=== PATIENT | female | born 1965 | race Caucasian/White ===

== ENCOUNTER 2020-06-15 08:54 | Inpatient (IN) ==
[2020-06-15] MEDS ORDERED: SODIUM CHLORIDE 0.9% 1,000 ML IV STA (10:29)
[2020-06-15] MEDS ORDERED: ONDANSETRON 4 MG/2 ML VIAL IV STA (10:29)
[2020-06-15 10:43] LABS: Basophils % 0.2 % (0.0-0.8); Eosinophils % 0.2 % (0.00-10.9); Hematocrit 34.2 VOL% (35.7-47.0); Hemoglobin 11.5 GM/DL (12.0-16.0); Immature Granulocytes % 0.7 %; Immature Granulocytes Absolute 0.13 #; Lymphocytes # 2.4 10*3/uL (1.4-4.0); Lymphocytes % 13.2 % (21.3-54.2); Mean Corpuscular HGB Conc 33.6 GM/DL (32-36); Mean Corpuscular Volume 87.9 FL (87-102); Mean Platelet Volume 8.2 FL (9.6-12.0); Monocytes % 4.9 % (1.7-12.7); Neutrophils % 80.8 % (38.7-73.9); Platelet Count 277 T/CUMM (130-400); Red Blood Count 3.89 MC/CUMM (3.8-5.5); Red Cell Distribution Width 15.9 % (9.3-17.3); White Blood Count 18.2 T/CUMM (4-12)
[2020-06-15 11:01] LABS: PT Patient Result 11.1 SECS (9.8-11.9)
[2020-06-15 11:11] LABS: Albumin 3.1 G/DL (3.4-5.0); Bilirubin,Total 0.7 MG/DL (0.2-1.0); Ferritin 181.5 ng/ml (8-252); Osmolality,Calculated 262.8 MOS/KG (273-304); Potassium 3.3 MMOL/L (3.5-5.1); Total Protein 7.2 G/DL (6.4-8.3)
[2020-06-15] MEDS ORDERED: PIPERACILLIN/TAZOBACTAM 3,375 MG in SODIUM CHLORIDE 0.9% 100 ML IV STA (11:21)
[2020-06-15] MEDS ORDERED: ENOXAPARIN 100 MG/ML SYRINGE SUBCUT STA (11:58)
[2020-06-15] MEDS ORDERED: ACETAMINOPHEN 500 MG TABLET ONE (12:29)
[2020-06-15] MEDS ORDERED: ACETAMINOPHEN 500 MG TABLET PO STA (12:37)
[2020-06-15] MEDS ORDERED: GLUCAGON 1 MG VIAL IM PRN (13:04)
[2020-06-15] MEDS ORDERED: DEXTROSE 50% 25 GM/50 ML VIAL IV PRN (13:04)
[2020-06-15] MEDS ORDERED: AZITHROMYCIN INJ 500 MG in SODIUM CHLORIDE 0.9% 250 ML IV SCH (13:30)
[2020-06-15] MEDS ORDERED: SODIUM CHLORIDE 0.9% 100 ML IV ONE (13:48)
[2020-06-15] MEDS: SODIUM CHLORIDE 0.9% 1,000 ML IV SCH (13:55)
[2020-06-15] MEDS: cefTRIAXone 1,000 MG in SYRINGE 1 EACH IV SCH (13:55)
[2020-06-15] MEDS ORDERED: hydrALAZINE 20 MG/1 ML VIAL IV PRN (15:29)
[2020-06-15] MEDS: ONDANSETRON 4 MG/2 ML VIAL IV PRN (16:19)
[2020-06-15] MEDS ORDERED: MORPHINE 4 MG/1 ML VIAL ONE (16:42)
[2020-06-15] MEDS ORDERED: MORPHINE 4 MG/1 ML VIAL IV STA (16:45)
[2020-06-15] MEDS: FLUTICASONE 50 MCG NASAL SPRAY 16 GM BOTTLE BOTH NARES SCH ×2 (17:15→21:51)
[2020-06-15] MEDS: POTASSIUM CHLORIDE RIDER 10 MEQ in PREMIX 1 EACH IV PRN ×4 (17:49→22:57)
[2020-06-15] MEDS: oxyCODONE/ACETAMINOPHEN 5-325 MG TABLET PO PRN (18:03)
[2020-06-15] MEDS: APIXABAN 5 MG TABLET PO SCH (20:36)
[2020-06-15] MEDS: GABAPENTIN 300 MG CAPSULE PO SCH (20:36)
[2020-06-15] MEDS: cycloSPORINE OPH EMUL 1 VIAL BOTH EYES SCH (20:37)
[2020-06-15] MEDS: oxyCODONE ER 20 MG TABLET PO SCH (20:37)
[2020-06-15] MEDS ORDERED: APIXABAN 5 MG TABLET PO SCH (21:00)
[2020-06-15] MEDS ORDERED: BUTALBITAL/ACETAMIN/CAFFEINE 50-325-40 MG TABLET PO ONE (21:25)
[2020-06-15] MEDS ORDERED: CALCIUM CARBONATE CHEW 500 MG TABLET PO PRN (22:49)
[2020-06-16] MEDS: oxyCODONE/ACETAMINOPHEN 5-325 MG TABLET PO PRN ×2 (03:37→11:40)
[2020-06-16 07:25] LABS: Basophils # 0.1 10*3/uL (0.0-0.2); Basophils % 0.5 % (0.0-0.8); Eosinophils # 0.1 10*3/uL (0.0-0.87); Hematocrit 29.9 VOL% (35.7-47.0); Hemoglobin 9.8 GM/DL (12.0-16.0); Immature Granulocytes % 0.7 %; Immature Granulocytes Absolute 0.07 #; Lymphocytes % 18.7 % (21.3-54.2); Mean Corpuscular HGB Conc 32.8 GM/DL (32-36); Mean Corpuscular Volume 90.3 FL (87-102); Mean Platelet Volume 8.3 FL (9.6-12.0); Monocytes % 7.3 % (1.7-12.7); Neutrophils % 71.8 % (38.7-73.9); Platelet Count 243 T/CUMM (130-400); Red Blood Count 3.31 MC/CUMM (3.8-5.5); Red Cell Distribution Width 15.4 % (9.3-17.3); White Blood Count 10.5 T/CUMM (4-12)
[2020-06-16 07:45] LABS: Calcium 8.6 MG/DL (8.5-10.1); Osmolality,Calculated 271.7 MOS/KG (273-304); Potassium 3.5 MMOL/L (3.5-5.1)
[2020-06-16] MEDS: FLUTICASONE 50 MCG NASAL SPRAY 16 GM BOTTLE BOTH NARES SCH ×2 (08:47→20:53)
[2020-06-16] MEDS: THYROID 60 MG TABLET PO SCH (08:48)
[2020-06-16] MEDS: oxyCODONE ER 20 MG TABLET PO SCH ×2 (08:48→20:57)
[2020-06-16] MEDS: PANTOPRAZOLE 40 MG TABLET PO SCH (08:50)
[2020-06-16] MEDS: POTASSIUM CHLORIDE 20 MEQ TABLET PO PRN ×2 (08:50→11:49)
[2020-06-16] MEDS: LISINOPRIL/HCTZ 20-25 MG TABLET PO SCH (08:50)
[2020-06-16] MEDS: APIXABAN 5 MG TABLET PO SCH ×2 (08:50→20:53)
[2020-06-16] MEDS: GABAPENTIN 300 MG CAPSULE PO SCH ×3 (08:50→20:52)
[2020-06-16] MEDS: cycloSPORINE OPH EMUL 1 VIAL BOTH EYES SCH ×2 (08:51→20:53)
[2020-06-16] MEDS: ONDANSETRON 4 MG/2 ML VIAL IV PRN (08:51)
[2020-06-16] MEDS ORDERED: CYANOCOBALAMIN 1000 MCG/1 ML VIAL IM SCH (09:00)
[2020-06-16] MEDS: BACLOFEN 10 MG TABLET PO PRN ×3 (09:24→20:52)
[2020-06-16] MEDS: AZITHROMYCIN 250 MG TABLET PO SCH (09:24)
[2020-06-16] MEDS: cefTRIAXone 1,000 MG in SYRINGE 1 EACH IV SCH (09:24)
[2020-06-16 10:08] LABS: Bilirubin,Urine Negative (Negative); Blood, Urine Large mg/dL (Negative); Glucose,Urine (UA) Negative (Negative); Ketones,Urine 20 mg/dL (Negative); Mucus,Urine Occasional /LPF (Occasional); Nitrite,Urine Negative (Negative); Protein,Urine Negative; RBC,Urine 10 /HPF (0-4); Squamous Epithelial Cell,Urine Occasional /HPF (0-10); Urine Appearance CLEAR (Clear); Urine Color Yellow (Yellow); Urine Specific Gravity 1.014 (1.001-1.035); Urine Urobilinogen < 2.0 EU/DL (0.2-1.0); WBC,Urine 1 /HPF (0-6)
[2020-06-16] MEDS ORDERED: ACETAMINOPHEN 325 MG TABLET PO PRN (11:15)
[2020-06-16] MEDS: predniSONE 5 MG TABLET PO SCH (11:40)
[2020-06-16] MEDS: PROMETHAZINE 25 MG TABLET PO PRN ×2 (11:49→23:25)
[2020-06-16] MEDS ORDERED: POTASSIUM CHLORIDE RIDER 10 MEQ in PREMIX 1 EACH IV PRN (12:22)
[2020-06-16] MEDS ORDERED: BUTALBITAL/ACETAMIN/CAFFEINE 50-325-40 MG TABLET PO PRN (12:24)
[2020-06-16] MEDS ORDERED: predniSONE 5 MG TABLET PO SCH (12:30)
[2020-06-16] MEDS ORDERED: predniSONE 10 MG TABLET PO SCH (12:30)
[2020-06-17] MEDS: oxyCODONE/ACETAMINOPHEN 5-325 MG TABLET PO PRN (04:21)
[2020-06-17] MEDS: SODIUM CHLORIDE 0.9% 1,000 ML IV SCH ×4 (04:25→08:26)
[2020-06-17 06:21] LABS: Basophils % 0.2 % (0.0-0.8); Eosinophils # 0.1 10*3/uL (0.0-0.87); Eosinophils % 0.5 % (0.00-10.9); Hematocrit 32.3 VOL% (35.7-47.0); Hemoglobin 10.5 GM/DL (12.0-16.0); Immature Granulocytes % 0.9 %; Immature Granulocytes Absolute 0.09 #; Lymphocytes # 1.1 10*3/uL (1.4-4.0); Lymphocytes % 10.3 % (21.3-54.2); Mean Corpuscular HGB Conc 32.5 GM/DL (32-36); Mean Corpuscular Volume 89.5 FL (87-102); Mean Platelet Volume 8.6 FL (9.6-12.0); Monocytes % 6.7 % (1.7-12.7); Neutrophils % 81.4 % (38.7-73.9); Platelet Count 288 T/CUMM (130-400); Red Blood Count 3.61 MC/CUMM (3.8-5.5); Red Cell Distribution Width 14.9 % (9.3-17.3); White Blood Count 10.4 T/CUMM (4-12)
[2020-06-17 06:40] LABS: Calcium 8.7 MG/DL (8.5-10.1); Osmolality,Calculated 273.8 MOS/KG (273-304); Potassium 3.2 MMOL/L (3.5-5.1)
[2020-06-17 06:45] LABS: Ferritin 240.1 ng/ml (8-252)
[2020-06-17] MEDS: POTASSIUM CHLORIDE 20 MEQ TABLET PO PRN ×2 (08:24→10:31)
[2020-06-17] MEDS: cefTRIAXone 1,000 MG in SYRINGE 1 EACH IV SCH (08:24)
[2020-06-17] MEDS: predniSONE 5 MG TABLET PO SCH (08:24)
[2020-06-17] MEDS: AZITHROMYCIN 250 MG TABLET PO SCH (08:25)
[2020-06-17] MEDS: THYROID 60 MG TABLET PO SCH (08:25)
[2020-06-17] MEDS: oxyCODONE ER 20 MG TABLET PO SCH (08:25)
[2020-06-17] MEDS: LISINOPRIL/HCTZ 20-25 MG TABLET PO SCH (08:25)
[2020-06-17] MEDS: APIXABAN 5 MG TABLET PO SCH (08:25)
[2020-06-17] MEDS: GABAPENTIN 300 MG CAPSULE PO SCH (08:25)
[2020-06-17] MEDS: PANTOPRAZOLE 40 MG TABLET PO SCH (08:26)
[2020-06-17] MEDS: cycloSPORINE OPH EMUL 1 VIAL BOTH EYES SCH (08:26)
[2020-06-17] MEDS: FLUTICASONE 50 MCG NASAL SPRAY 16 GM BOTTLE BOTH NARES SCH (08:27)
[2020-06-17 11:32] VITALS: BP 101/42
[2020-06-17] MEDS ORDERED: POTASSIUM CHLORIDE 20 MEQ TABLET PO ONE (14:26)
[2020-06-22] MEDS ORDERED: APIXABAN 5 MG TABLET PO SCH (21:00)
== END 2020-06-17 14:56 | disposition home or self-care (01) | DRG 177 ==
LOC: N.ED 08:54 → N.EDINP 13:04 → N.5E 17:13
PROVIDERS: ADMIT Internal Medicine; ATTEND Internal Medicine

== ENCOUNTER 2020-08-15 08:40 | Inpatient (IN) ==
[2020-08-15] MEDS ORDERED: HYDROmorphone 2 MG/1 ML VIAL IV STA ×2 (09:00→09:49)
[2020-08-15] MEDS ORDERED: ONDANSETRON 4 MG/2 ML VIAL IV STA (09:00)
[2020-08-15 09:50] LABS: Basophils # 0.1 10*3/uL (0.0-0.2); Basophils % 0.4 % (0.0-0.8); Eosinophils # 0.1 10*3/uL (0.0-0.87); Eosinophils % 0.3 % (0.00-10.9); Hematocrit 33.2 VOL% (35.7-47.0); Hemoglobin 10.6 GM/DL (12.0-16.0); Immature Granulocytes % 1.3 %; Lymphocytes # 2.6 10*3/uL (1.4-4.0); Lymphocytes % 16.1 % (21.3-54.2); Mean Corpuscular HGB Conc 31.9 GM/DL (32-36); Mean Corpuscular Volume 91.2 FL (87-102); Mean Platelet Volume 8.2 FL (9.6-12.0); Monocytes % 6.5 % (1.7-12.7); Neutrophils % 75.4 % (38.7-73.9); Platelet Count 366 T/CUMM (130-400); Red Blood Count 3.64 MC/CUMM (3.8-5.5); Red Cell Distribution Width 16.2 % (9.3-17.3); White Blood Count 15.9 T/CUMM (4-12)
[2020-08-15 10:01] LABS: INR 0.9
[2020-08-15 10:07] LABS: Bilirubin,Urine Negative (Negative); Blood, Urine Small mg/dL (Negative); Glucose,Urine (UA) Negative (Negative); Ketones,Urine Negative (Negative); Mucus,Urine Occasional /LPF (Occasional); Nitrite,Urine Negative (Negative); Protein,Urine Negative; RBC,Urine 9 /HPF (0-4); Urine Appearance CLEAR (Clear); Urine Color Yellow (Yellow); Urine Specific Gravity 1.016 (1.001-1.035); Urine Urobilinogen < 2.0 EU/DL (0.2-1.0); WBC,Urine <1 /HPF (0-6)
[2020-08-15 10:28] LABS: Osmolality,Calculated 267.5 MOS/KG (273-304); Potassium 4.1 MMOL/L (3.5-5.1)
[2020-08-15] MEDS ORDERED: ONDANSETRON 4 MG/2 ML VIAL IV PRN (13:25)
[2020-08-15] MEDS ORDERED: DEXTROSE 50% 25 GM/50 ML VIAL IV PRN ×2 (14:07→14:59)
[2020-08-15] MEDS ORDERED: GLUCAGON 1 MG VIAL IM PRN ×2 (14:07→14:59)
[2020-08-15] MEDS ORDERED: DOCUSATE SODIUM 100 MG CAPSULE PO PRN (14:59)
[2020-08-15] MEDS ORDERED: ALUMINUM/MAGNES/SIMETH MAX STR 30 ML UDCUP PO PRN (14:59)
[2020-08-15] MEDS: SODIUM CHLORIDE 0.9% 1,000 ML IV SCH (16:00)
[2020-08-15] MEDS ORDERED: HEPARIN DRIP 25,000 UNITS/500 ML PREMIX IV SCH (16:30)
[2020-08-15] MEDS ORDERED: PROMETHAZINE 25 MG TABLET PO PRN (16:38)
[2020-08-15] MEDS ORDERED: tiZANidine 4 MG TABLET PO PRN (16:38)
[2020-08-15] MEDS ORDERED: HYDROCORTISONE 100 MG VIAL IV ONE (16:44)
[2020-08-15] MEDS: INSULIN REGULAR 100 UNIT/ML SUBCUT SCH ×2 (16:50→21:00)
[2020-08-15] MEDS ORDERED: HYDROCORTISONE 100 MG VIAL IV SCH (17:00)
[2020-08-15] MEDS: HYDROCORTISONE 100 MG VIAL IV SCH ×2 (17:51→23:00)
[2020-08-15] MEDS: cycloSPORINE OPH EMUL 1 VIAL BOTH EYES SCH (19:05)
[2020-08-15] MEDS: FERROUS SULFATE 325 MG TABLET PO SCH (21:47)
[2020-08-15] MEDS: GABAPENTIN 300 MG CAPSULE PO SCH (21:47)
[2020-08-15] MEDS: MORPHINE 4 MG/1 ML VIAL IV PRN (21:54)
[2020-08-16] MEDS: SODIUM CHLORIDE 0.9% 1,000 ML IV SCH ×3 (01:21→23:22)
[2020-08-16] MEDS: MORPHINE 4 MG/1 ML VIAL IV PRN ×3 (02:10→20:54)
[2020-08-16 05:42] LABS: Basophils # 0.1 10*3/uL (0.0-0.2); Basophils % 0.6 % (0.0-0.8); Eosinophils # 0.1 10*3/uL (0.0-0.87); Eosinophils % 0.9 % (0.00-10.9); Hematocrit 31.7 VOL% (35.7-47.0); Hemoglobin 10.4 GM/DL (12.0-16.0); Immature Granulocytes % 2.1 %; Immature Granulocytes Absolute 0.27 #; Lymphocytes # 2.7 10*3/uL (1.4-4.0); Lymphocytes % 21.1 % (21.3-54.2); Mean Corpuscular HGB Conc 32.8 GM/DL (32-36); Mean Corpuscular Volume 90.6 FL (87-102); Mean Platelet Volume 8.8 FL (9.6-12.0); Monocytes % 8.1 % (1.7-12.7); Neutrophils % 67.2 % (38.7-73.9); Platelet Count 380 T/CUMM (130-400); Red Cell Distribution Width 16.4 % (9.3-17.3); White Blood Count 12.7 T/CUMM (4-12)
[2020-08-16 05:59] LABS: Calcium 8.5 MG/DL (8.5-10.1); Osmolality,Calculated 269.2 MOS/KG (273-304); Potassium 3.9 MMOL/L (3.5-5.1)
[2020-08-16] MEDS: cycloSPORINE OPH EMUL 1 VIAL BOTH EYES SCH ×2 (06:17→18:40)
[2020-08-16] MEDS: HYDROCORTISONE 100 MG VIAL IV SCH (06:47)
[2020-08-16] MEDS: INSULIN REGULAR 100 UNIT/ML SUBCUT SCH ×4 (07:25→21:42)
[2020-08-16] MEDS: NICOTINE 14 MG/24 HR PATCH TRANSDERM SCH (09:00)
[2020-08-16] MEDS ORDERED: THYROID 15 MG PO SCH (09:00)
[2020-08-16] MEDS: GABAPENTIN 300 MG CAPSULE PO SCH ×3 (09:00→21:41)
[2020-08-16] MEDS: FERROUS SULFATE 325 MG TABLET PO SCH ×2 (09:00→21:41)
[2020-08-16] MEDS: PANTOPRAZOLE 40 MG TABLET PO SCH (09:00)
[2020-08-16] MEDS ORDERED: MORPHINE 4 MG/1 ML VIAL IV ONE (10:40)
[2020-08-16] MEDS ORDERED: ONDANSETRON 4 MG/2 ML VIAL IV ONE (10:41)
[2020-08-16] MEDS ORDERED: HYDROCORTISONE 100 MG VIAL IV ONE (12:00)
[2020-08-16] MEDS ORDERED: fentaNYL 100 MCG/2 ML VIAL ONE ×2 (12:02→14:40)
[2020-08-16] MEDS ORDERED: LIDOCAINE 2% 5 ML VIAL ONE (12:02)
[2020-08-16] MEDS ORDERED: MIDAZOLAM 2 MG/2 ML VIAL ONE (12:02)
[2020-08-16] MEDS ORDERED: propofoL 200 MG/20 ML VIAL IV ONE (12:02)
[2020-08-16] MEDS ORDERED: SUCCINYLCHOLINE 200 MG/10 ML VIAL ONE (12:21)
[2020-08-16] MEDS ORDERED: ROCURONIUM 50 MG/5 ML VIAL IV ONE ×2 (12:37→13:36)
[2020-08-16] MEDS ORDERED: PHENYLEPHRINE 1 MG/10 ML SYRINGE IV ONE (13:00)
[2020-08-16] MEDS ORDERED: ceFAZolin 1,000 MG VIAL ONE (13:03)
[2020-08-16] MEDS ORDERED: HYDROCORTISONE 100 MG VIAL ONE (13:49)
[2020-08-16] MEDS ORDERED: ACETAMINOPHEN 1,000 MG/100 ML VIAL IV ONE (13:58)
[2020-08-16] MEDS ORDERED: ONDANSETRON 4 MG/2 ML VIAL ONE (14:00)
[2020-08-16] MEDS ORDERED: GLYCOPYRROLATE 0.4 MG/2 ML VIAL ONE (14:05)
[2020-08-16] MEDS ORDERED: NEOSTIGMINE 10 MG/10 ML VIAL ONE (14:05)
[2020-08-16] MEDS ORDERED: LACTATED RINGERS 1,000 ML IV ONE (14:08)
[2020-08-16] MEDS ORDERED: SEVOFLURANE 1 UNIT/15 MINUTE INH ONE (14:28)
[2020-08-16] MEDS ORDERED: ONDANSETRON 4 MG/2 ML VIAL IV PRN (15:00)
[2020-08-16] MEDS ORDERED: METOCLOPRAMIDE 10 MG/2 ML VIAL IV ONE (15:05)
[2020-08-16] MEDS: MEPERIDINE 25 MG/1 ML VIAL IV PRN (15:26)
[2020-08-16] MEDS ORDERED: MEPERIDINE 25 MG/1 ML VIAL ONE (15:26)
[2020-08-16] MEDS ORDERED: [UNRECOGNIZED DRUG - OTHER] SUBCUT SCH (16:32)
[2020-08-16] MEDS ORDERED: IMMUNE GLOBULIN SUBCUT SCH (16:32)
[2020-08-16] MEDS ORDERED: CYANOCOBALAMIN 1000 MCG/1 ML VIAL IM SCH (16:32)
[2020-08-16] MEDS: ACETAMINOPHEN 325 MG TABLET PO PRN (21:48)
[2020-08-17] MEDS: MORPHINE 4 MG/1 ML VIAL IV PRN ×4 (01:53→19:58)
[2020-08-17] MEDS: cycloSPORINE OPH EMUL 1 VIAL BOTH EYES SCH ×2 (05:30→18:15)
[2020-08-17 07:46] LABS: Basophils # 0.1 10*3/uL (0.0-0.2); Basophils % 0.3 % (0.0-0.8); Eosinophils % 0.1 % (0.00-10.9); Hematocrit 28.4 VOL% (35.7-47.0); Hemoglobin 9.3 GM/DL (12.0-16.0); Immature Granulocytes % 1.3 %; Immature Granulocytes Absolute 0.19 #; Lymphocytes % 13.3 % (21.3-54.2); Mean Corpuscular HGB Conc 32.7 GM/DL (32-36); Mean Corpuscular Volume 90.7 FL (87-102); Mean Platelet Volume 8.3 FL (9.6-12.0); Monocytes % 8.4 % (1.7-12.7); Neutrophils % 76.6 % (38.7-73.9); Platelet Count 306 T/CUMM (130-400); Red Blood Count 3.13 MC/CUMM (3.8-5.5); Red Cell Distribution Width 15.9 % (9.3-17.3); White Blood Count 15.2 T/CUMM (4-12)
[2020-08-17 08:10] LABS: Calcium 8.4 MG/DL (8.5-10.1); Osmolality,Calculated 259.8 MOS/KG (273-304); Potassium 3.5 MMOL/L (3.5-5.1)
[2020-08-17] MEDS ORDERED: MAGNESIUM SULF RIDER 2 GM in PREMIX 1 EACH IV ONE (08:26)
[2020-08-17] MEDS: INSULIN REGULAR 100 UNIT/ML SUBCUT SCH ×4 (09:40→21:10)
[2020-08-17] MEDS: FERROUS SULFATE 325 MG TABLET PO SCH ×2 (10:13→21:10)
[2020-08-17] MEDS: PANTOPRAZOLE 40 MG TABLET PO SCH (10:13)
[2020-08-17] MEDS: NICOTINE 14 MG/24 HR PATCH TRANSDERM SCH (10:13)
[2020-08-17] MEDS: GABAPENTIN 300 MG CAPSULE PO SCH ×3 (10:13→21:10)
[2020-08-17] MEDS ORDERED: DEXTROSE 50% 25 GM/50 ML VIAL IV PRN (10:20)
[2020-08-17] MEDS: SODIUM CHLORIDE 0.9% 1,000 ML IV SCH ×2 (13:54→22:14)
[2020-08-17] MEDS: oxyCODONE/ACETAMINOPHEN 5-325 MG TABLET PO PRN ×2 (15:00→22:30)
[2020-08-17] MEDS: predniSONE 5 MG TABLET PO SCH (16:29)
[2020-08-17 17:12] LABS: Bilirubin,Urine Negative (Negative); Blood, Urine Large mg/dL (Negative); Glucose,Urine (UA) Negative (Negative); Hyaline Casts,Urine 3 /LPF (0-3); Ketones,Urine Negative (Negative); Mucus,Urine Occasional /LPF (Occasional); Nitrite,Urine Negative (Negative); Protein,Urine Negative; RBC,Urine 10 /HPF (0-4); Squamous Epithelial Cell,Urine Occasional /HPF (0-10); Urine Appearance CLEAR (Clear); Urine Color Yellow (Yellow); Urine Specific Gravity 1.014 (1.001-1.035); Urine Urobilinogen < 2.0 EU/DL (0.2-1.0)
[2020-08-17] MEDS: ACETAMINOPHEN 325 MG TABLET PO PRN (19:53)
[2020-08-17] MEDS: APIXABAN 5 MG TABLET PO SCH (21:10)
[2020-08-17] MEDS: oxyCODONE ER 10 MG TABLET PO SCH (21:10)
[2020-08-18] MEDS: SODIUM CHLORIDE 0.9% 1,000 ML IV SCH (00:53)
[2020-08-18] MEDS: oxyCODONE/ACETAMINOPHEN 5-325 MG TABLET PO PRN ×3 (04:47→19:59)
[2020-08-18] MEDS: cycloSPORINE OPH EMUL 1 VIAL BOTH EYES SCH ×2 (04:49→17:26)
[2020-08-18 05:36] LABS: Basophils % 0.1 % (0.0-0.8); Eosinophils % 0.1 % (0.00-10.9); Hematocrit 29.1 VOL% (35.7-47.0); Hemoglobin 9.5 GM/DL (12.0-16.0); Immature Granulocytes % 0.8 %; Immature Granulocytes Absolute 0.11 #; Lymphocytes # 0.8 10*3/uL (1.4-4.0); Lymphocytes % 5.8 % (21.3-54.2); Mean Corpuscular HGB Conc 32.6 GM/DL (32-36); Mean Corpuscular Volume 89.8 FL (87-102); Mean Platelet Volume 8.8 FL (9.6-12.0); Monocytes % 7.5 % (1.7-12.7); Neutrophils % 85.7 % (38.7-73.9); Platelet Count 294 T/CUMM (130-400); Red Blood Count 3.24 MC/CUMM (3.8-5.5); Red Cell Distribution Width 15.3 % (9.3-17.3); White Blood Count 14.5 T/CUMM (4-12)
[2020-08-18 05:50] LABS: Calcium 8.6 MG/DL (8.5-10.1); Osmolality,Calculated 268.2 MOS/KG (273-304); Potassium 3.8 MMOL/L (3.5-5.1)
[2020-08-18] MEDS: INSULIN REGULAR 100 UNIT/ML SUBCUT SCH ×4 (07:58→21:51)
[2020-08-18] MEDS: APIXABAN 5 MG TABLET PO SCH ×2 (08:56→21:45)
[2020-08-18] MEDS: GABAPENTIN 300 MG CAPSULE PO SCH ×3 (08:56→21:44)
[2020-08-18] MEDS: oxyCODONE ER 10 MG TABLET PO SCH ×2 (08:57→21:45)
[2020-08-18] MEDS: PANTOPRAZOLE 40 MG TABLET PO SCH (08:57)
[2020-08-18] MEDS: predniSONE 5 MG TABLET PO SCH (08:58)
[2020-08-18] MEDS: NICOTINE 14 MG/24 HR PATCH TRANSDERM SCH ×2 (08:58→10:58)
[2020-08-18] MEDS: FERROUS SULFATE 325 MG TABLET PO SCH ×2 (08:58→21:45)
[2020-08-19] MEDS: oxyCODONE/ACETAMINOPHEN 5-325 MG TABLET PO PRN (02:24)
[2020-08-19 05:11] LABS: Basophils % 0.1 % (0.0-0.8); Eosinophils # 0.1 10*3/uL (0.0-0.87); Eosinophils % 0.4 % (0.00-10.9); Hematocrit 25.3 VOL% (35.7-47.0); Hemoglobin 8.2 GM/DL (12.0-16.0); Immature Granulocytes % 0.7 %; Lymphocytes # 1.3 10*3/uL (1.4-4.0); Lymphocytes % 9.9 % (21.3-54.2); Mean Corpuscular HGB Conc 32.4 GM/DL (32-36); Mean Corpuscular Volume 89.7 FL (87-102); Mean Platelet Volume 8.8 FL (9.6-12.0); Monocytes % 8.3 % (1.7-12.7); Neutrophils % 80.6 % (38.7-73.9); Platelet Count 316 T/CUMM (130-400); Red Blood Count 2.82 MC/CUMM (3.8-5.5); Red Cell Distribution Width 14.8 % (9.3-17.3); White Blood Count 13.5 T/CUMM (4-12)
[2020-08-19] MEDS: cycloSPORINE OPH EMUL 1 VIAL BOTH EYES SCH ×2 (05:32→17:06)
[2020-08-19 05:36] LABS: Calcium 8.8 MG/DL (8.5-10.1); Osmolality,Calculated 265.4 MOS/KG (273-304); Potassium 3.5 MMOL/L (3.5-5.1)
[2020-08-19] MEDS: INSULIN REGULAR 100 UNIT/ML SUBCUT SCH ×3 (07:22→17:06)
[2020-08-19] MEDS ORDERED: SODIUM CHLORIDE 0.9% 1,000 ML IV PRN (08:20)
[2020-08-19] MEDS: predniSONE 5 MG TABLET PO SCH (08:58)
[2020-08-19] MEDS: PANTOPRAZOLE 40 MG TABLET PO SCH (08:58)
[2020-08-19] MEDS: oxyCODONE ER 10 MG TABLET PO SCH (08:59)
[2020-08-19] MEDS: APIXABAN 5 MG TABLET PO SCH (08:59)
[2020-08-19] MEDS: FERROUS SULFATE 325 MG TABLET PO SCH (08:59)
[2020-08-19] MEDS: GABAPENTIN 300 MG CAPSULE PO SCH ×2 (08:59→17:05)
[2020-08-19] MEDS: NICOTINE 14 MG/24 HR PATCH TRANSDERM SCH (09:00)
[2020-08-19 17:03] VITALS: BP 136/68
== END 2020-08-19 17:07 | disposition home health service (06) | DRG 481 ==
LOC: N.ED 08:40 → N.EDINP 12:02 → N.3E 12:23
PROVIDERS: ADMIT Internal Medicine; ATTEND Internal Medicine

== ENCOUNTER 2021-04-28 13:02 | Inpatient (IN) ==
[2021-04-28] MEDS ORDERED: SODIUM CHLORIDE 0.9% 1,000 ML IV STA (13:29)
[2021-04-28 14:03] LABS: Basophils # 0.1 10*3/uL (0.0-0.2); Basophils % 0.2 % (0.0-0.8); Eosinophils % 0.1 % (0.00-10.9); Hematocrit 39.4 VOL% (35.7-47.0); Immature Granulocytes % 0.6 %; Immature Granulocytes Absolute 0.13 #; Lymphocytes # 1.9 10*3/uL (1.4-4.0); Lymphocytes % 8.9 % (21.3-54.2); Mean Corpuscular Volume 87.4 FL (87-102); Mean Platelet Volume 8.6 FL (9.6-12.0); Monocytes % 2.2 % (1.7-12.7); Platelet Count 394 T/CUMM (130-400); Red Blood Count 4.51 MC/CUMM (3.8-5.5); Red Cell Distribution Width 16.1 % (9.3-17.3); White Blood Count 21.6 T/CUMM (4-12)
[2021-04-28] MEDS ORDERED: PIPERACILLIN/TAZOBACTAM 3,375 MG in SODIUM CHLORIDE 0.9% 100 ML IV STA (14:19)
[2021-04-28 14:25] LABS: Albumin 2.9 G/DL (3.4-5.0); Bilirubin,Total 0.6 MG/DL (0.20-1.00); Calcium 9.9 MG/DL (8.5-10.1); Osmolality,Calculated 262.8 MOS/KG (273-304)
[2021-04-28] MEDS ORDERED: POTASSIUM CHLORIDE 20 MEQ TABLET PO STA (14:31)
[2021-04-28 14:45] LABS: Lymphocytes 11 % (20-55); Segmented Neutrophils 88 % (50-85); Total Cells Counted 100
[2021-04-28] MEDS ORDERED: ZALEPLON 5 MG CAPSULE PO PRN (15:21)
[2021-04-28] MEDS ORDERED: LEVOFLOXACIN INJ 750 MG/150 ML PREMIX IV SCH (15:30)
[2021-04-28] MEDS ORDERED: POTASSIUM CHLORIDE 20 MEQ TABLET PO PRN (15:33)
[2021-04-28] MEDS ORDERED: DEXTROSE 50% 25 GM/50 ML VIAL IV PRN (16:13)
[2021-04-28] MEDS ORDERED: GLUCAGON 1 MG VIAL IM PRN (16:13)
[2021-04-28] MEDS ORDERED: SODIUM CHLORIDE 0.9% 1,000 ML IV SCH (16:30)
[2021-04-28] MEDS: ONDANSETRON 4 MG/2 ML VIAL IV PRN ×2 (17:08→20:44)
[2021-04-28 18:02] LABS: Bilirubin,Urine Negative (Negative); Blood, Urine Large mg/dL (Negative); Glucose,Urine (UA) Negative (Negative); Hyaline Casts,Urine 4 /LPF (0-3); Ketones,Urine 5 mg/dL (Negative); Mucus,Urine Occasional /LPF (Occasional); Nitrite,Urine Negative (Negative); Protein,Urine 30 MG/DL; RBC,Urine 30 /HPF (0-4); Squamous Epithelial Cell,Urine Occasional /HPF (0-10); Urine Appearance CLEAR (Clear); Urine Color Yellow (Yellow); Urine Urobilinogen < 2.0 EU/DL (0.2-1.0)
[2021-04-28] MEDS: ALBUTEROL/IPRATROPIUM 3 ML NEB RESP TX SCH (19:38)
[2021-04-28] MEDS: ACETAMINOPHEN 325 MG TABLET PO PRN (20:13)
[2021-04-28] MEDS ORDERED: NON-FORMULARY MEDICATION (Oxycodone-Acetaminophen [Percocet] 10-325 mg Tablet) PO PRN (21:45)
[2021-04-28] MEDS: APIXABAN 5 MG TABLET PO SCH (22:08)
[2021-04-28] MEDS: PIPERACILLIN/TAZOBACTAM 3,375 MG in SODIUM CHLORIDE 0.9% 100 ML IV SCH (22:08)
[2021-04-28] MEDS: INSULIN REGULAR 100 UNIT/ML SUBCUT SCH ×3 (22:08→22:21)
[2021-04-28] MEDS: PROMETHAZINE 25 MG/1 ML VIAL IM PRN (23:39)
[2021-04-29] MEDS: ALBUTEROL/IPRATROPIUM 3 ML NEB RESP TX SCH ×4 (00:35→19:45)
[2021-04-29] MEDS ORDERED: HYDROmorphone 2 MG/1 ML VIAL IV ONE (00:50)
[2021-04-29] MEDS: PROMETHAZINE 25 MG/1 ML VIAL IM PRN ×2 (03:50→20:32)
[2021-04-29] MEDS: ACETAMINOPHEN 325 MG TABLET PO PRN ×2 (04:15→12:29)
[2021-04-29] MEDS: HYDROmorphone 2 MG/1 ML VIAL IV PRN (04:16)
[2021-04-29 05:23] LABS: Basophils % 0.3 % (0.0-0.8); Eosinophils % 0.1 % (0.00-10.9); Hemoglobin 12.4 GM/DL (12.0-16.0); Immature Granulocytes % 0.5 %; Immature Granulocytes Absolute 0.07 #; Lymphocytes # 1.6 10*3/uL (1.4-4.0); Lymphocytes % 10.5 % (21.3-54.2); Mean Corpuscular HGB Conc 32.6 GM/DL (32-36); Mean Corpuscular Volume 88.8 FL (87-102); Mean Platelet Volume 9.2 FL (9.6-12.0); Monocytes % 3.6 % (1.7-12.7); Platelet Count 369 T/CUMM (130-400); Red Blood Count 4.28 MC/CUMM (3.8-5.5); Red Cell Distribution Width 16.1 % (9.3-17.3); White Blood Count 15.1 T/CUMM (4-12)
[2021-04-29 05:39] LABS: Albumin 2.5 G/DL (3.4-5.0); Bilirubin,Total 0.7 MG/DL (0.20-1.00); Calcium 9.3 MG/DL (8.5-10.1); Osmolality,Calculated 263.7 MOS/KG (273-304); Potassium 3.2 MMOL/L (3.5-5.1); Total Protein 7.3 G/DL (6.4-8.2)
[2021-04-29] MEDS: PIPERACILLIN/TAZOBACTAM 3,375 MG in SODIUM CHLORIDE 0.9% 100 ML IV SCH ×3 (06:26→21:40)
[2021-04-29] MEDS: ONDANSETRON 4 MG/2 ML VIAL IV PRN ×3 (06:26→23:09)
[2021-04-29] MEDS ORDERED: THYROID 15 MG PO SCH (06:30)
[2021-04-29] MEDS: tiZANidine 4 MG TABLET PO PRN ×2 (07:36→20:30)
[2021-04-29] MEDS ORDERED: NON-FORMULARY MEDICATION (Oxycodone-Acetaminophen [Percocet] 10-325 mg Tablet) PO PRN (09:00)
[2021-04-29] MEDS: INSULIN REGULAR 100 UNIT/ML SUBCUT SCH ×4 (09:24→20:32)
[2021-04-29] MEDS: APIXABAN 5 MG TABLET PO SCH ×2 (09:25→20:30)
[2021-04-29] MEDS: FLUCONAZOLE 200 MG TABLET PO SCH (09:25)
[2021-04-29] MEDS: BACLOFEN 10 MG TABLET PO SCH ×3 (09:25→20:30)
[2021-04-29] MEDS: LISINOPRIL/HCTZ 20-25 MG TABLET PO SCH (09:25)
[2021-04-29] MEDS: cycloSPORINE OPH EMUL 1 VIAL BOTH EYES SCH ×2 (09:25→20:38)
[2021-04-29] MEDS: FOLIC ACID 1 MG TABLET PO SCH (09:25)
[2021-04-29] MEDS: predniSONE 5 MG TABLET PO SCH (09:25)
[2021-04-29] MEDS: SULFAMETHOX/TRIMETHOPRIM 800-160 MG TABLET PO SCH (09:25)
[2021-04-29] MEDS: FERROUS SULFATE 325 MG TABLET PO SCH (09:25)
[2021-04-29] MEDS: PANTOPRAZOLE 40 MG TABLET PO SCH (09:25)
[2021-04-29] MEDS: oxyCODONE ER 20 MG TABLET PO SCH ×2 (09:25→20:31)
[2021-04-29] MEDS: predniSONE 10 MG TABLET PO SCH (09:25)
[2021-04-29] MEDS ORDERED: MORPHINE 2 MG/1 ML SYRINGE IV ONE (10:43)
[2021-04-30] MEDS: PROMETHAZINE 25 MG/1 ML VIAL IM PRN ×2 (00:42→11:05)
[2021-04-30] MEDS: ALBUTEROL/IPRATROPIUM 3 ML NEB RESP TX SCH ×4 (00:49→20:14)
[2021-04-30] MEDS: ACETAMINOPHEN 325 MG TABLET PO PRN (04:06)
[2021-04-30] MEDS: HYDROmorphone 2 MG/1 ML VIAL IV PRN ×2 (04:10→15:29)
[2021-04-30] MEDS: THYROID 60 MG TABLET PO SCH (05:45)
[2021-04-30] MEDS: PIPERACILLIN/TAZOBACTAM 3,375 MG in SODIUM CHLORIDE 0.9% 100 ML IV SCH ×2 (05:45→15:29)
[2021-04-30 06:27] LABS: Basophils % 0.1 % (0.0-0.8); Eosinophils % 0.3 % (0.00-10.9); Hematocrit 33.8 VOL% (35.7-47.0); Hemoglobin 11.2 GM/DL (12.0-16.0); Immature Granulocytes % 0.6 %; Immature Granulocytes Absolute 0.09 #; Lymphocytes # 1.4 10*3/uL (1.4-4.0); Lymphocytes % 9.7 % (21.3-54.2); Mean Corpuscular HGB Conc 33.1 GM/DL (32-36); Mean Corpuscular Volume 86.9 FL (87-102); Mean Platelet Volume 9.2 FL (9.6-12.0); Monocytes % 3.7 % (1.7-12.7); Neutrophils % 85.6 % (38.7-73.9); Platelet Count 341 T/CUMM (130-400); Red Blood Count 3.89 MC/CUMM (3.8-5.5); Red Cell Distribution Width 15.6 % (9.3-17.3); White Blood Count 14.2 T/CUMM (4-12)
[2021-04-30 06:48] LABS: Calcium 9.2 MG/DL (8.5-10.1); Osmolality,Calculated 258.8 MOS/KG (273-304); Potassium 3.3 MMOL/L (3.5-5.1)
[2021-04-30] MEDS: INSULIN REGULAR 100 UNIT/ML SUBCUT SCH ×4 (07:30→22:35)
[2021-04-30] MEDS: FOLIC ACID 1 MG TABLET PO SCH (09:29)
[2021-04-30] MEDS: APIXABAN 5 MG TABLET PO SCH (09:29)
[2021-04-30] MEDS: predniSONE 5 MG TABLET PO SCH (09:29)
[2021-04-30] MEDS: predniSONE 10 MG TABLET PO SCH (09:29)
[2021-04-30] MEDS: LISINOPRIL/HCTZ 20-25 MG TABLET PO SCH (09:29)
[2021-04-30] MEDS: FERROUS SULFATE 325 MG TABLET PO SCH (09:29)
[2021-04-30] MEDS: BACLOFEN 10 MG TABLET PO SCH ×3 (09:29→22:35)
[2021-04-30] MEDS: SULFAMETHOX/TRIMETHOPRIM 800-160 MG TABLET PO SCH (09:29)
[2021-04-30] MEDS: oxyCODONE ER 20 MG TABLET PO SCH ×2 (09:29→22:35)
[2021-04-30] MEDS: PANTOPRAZOLE 40 MG TABLET PO SCH (09:30)
[2021-04-30] MEDS: FLUCONAZOLE 200 MG TABLET PO SCH (09:30)
[2021-04-30] MEDS: cycloSPORINE OPH EMUL 1 VIAL BOTH EYES SCH ×2 (09:30→22:35)
[2021-04-30] MEDS ORDERED: FUROSEMIDE 20 MG/2 ML VIAL IV ONE (11:30)
[2021-04-30] MEDS: tiZANidine 4 MG TABLET PO PRN (17:20)
[2021-04-30] MEDS ORDERED: ENOXAPARIN 120 MG/0.8 ML SYRINGE SUBCUT ONE (21:00)
[2021-04-30] MEDS: LINEZOLID INJ 600 MG/300 ML PREMIX IV SCH (22:21)
[2021-04-30] MEDS: POTASSIUM CHLORIDE 20 MEQ TABLET PO PRN (22:38)
[2021-04-30] MEDS: ONDANSETRON 4 MG/2 ML VIAL IV PRN (22:49)
[2021-05-01] MEDS: ALBUTEROL/IPRATROPIUM 3 ML NEB RESP TX SCH ×5 (00:31→23:50)
[2021-05-01] MEDS: PIPERACILLIN/TAZOBACTAM 3,375 MG in SODIUM CHLORIDE 0.9% 100 ML IV SCH ×3 (01:41→18:12)
[2021-05-01] MEDS: POTASSIUM CHLORIDE 20 MEQ TABLET PO PRN ×2 (04:37→05:59)
[2021-05-01 05:42] LABS: Basophils % 0.3 % (0.0-0.8); Eosinophils # 0.2 10*3/uL (0.0-0.87); Eosinophils % 1.3 % (0.00-10.9); Hematocrit 31.7 VOL% (35.7-47.0); Hemoglobin 10.5 GM/DL (12.0-16.0); Immature Granulocytes % 0.9 %; Immature Granulocytes Absolute 0.11 #; Lymphocytes # 2.4 10*3/uL (1.4-4.0); Lymphocytes % 19.7 % (21.3-54.2); Mean Corpuscular HGB Conc 33.1 GM/DL (32-36); Mean Corpuscular Volume 87.3 FL (87-102); Monocytes % 6.3 % (1.7-12.7); Neutrophils % 71.5 % (38.7-73.9); Platelet Count 365 T/CUMM (130-400); Red Blood Count 3.63 MC/CUMM (3.8-5.5); Red Cell Distribution Width 15.4 % (9.3-17.3)
[2021-05-01 05:56] LABS: Calcium 9.1 MG/DL (8.5-10.1); Osmolality,Calculated 257.9 MOS/KG (273-304); Potassium 3.4 MMOL/L (3.5-5.1)
[2021-05-01] MEDS: THYROID 60 MG TABLET PO SCH (05:58)
[2021-05-01] MEDS ORDERED: MAGNESIUM SULF RIDER 4 GM/100 ML PREMIX IV ONE (07:41)
[2021-05-01] MEDS: ONDANSETRON 4 MG/2 ML VIAL IV PRN ×3 (08:34→23:27)
[2021-05-01] MEDS: FERROUS SULFATE 325 MG TABLET PO SCH (08:37)
[2021-05-01] MEDS: FLUCONAZOLE 200 MG TABLET PO SCH (08:37)
[2021-05-01] MEDS: predniSONE 10 MG TABLET PO SCH (08:38)
[2021-05-01] MEDS: FOLIC ACID 1 MG TABLET PO SCH (08:38)
[2021-05-01] MEDS: PANTOPRAZOLE 40 MG TABLET PO SCH (08:39)
[2021-05-01] MEDS: BACLOFEN 10 MG TABLET PO SCH ×3 (08:39→20:00)
[2021-05-01] MEDS: oxyCODONE ER 20 MG TABLET PO SCH ×2 (08:39→20:00)
[2021-05-01] MEDS: SULFAMETHOX/TRIMETHOPRIM 800-160 MG TABLET PO SCH (08:39)
[2021-05-01] MEDS: INSULIN REGULAR 100 UNIT/ML SUBCUT SCH ×4 (08:40→20:01)
[2021-05-01] MEDS: predniSONE 5 MG TABLET PO SCH (08:41)
[2021-05-01] MEDS: cycloSPORINE OPH EMUL 1 VIAL BOTH EYES SCH ×2 (08:41→19:59)
[2021-05-01] MEDS: HYDROmorphone 2 MG/1 ML VIAL IV PRN ×2 (10:11→18:11)
[2021-05-01] MEDS: LINEZOLID INJ 600 MG/300 ML PREMIX IV SCH ×2 (10:21→21:51)
[2021-05-01] MEDS: PROMETHAZINE 25 MG/1 ML VIAL IM PRN (12:23)
[2021-05-01] MEDS: SODIUM CHLORIDE 0.9% 1,000 ML IV SCH (14:04)
[2021-05-02] MEDS: HYDROmorphone 2 MG/1 ML VIAL IV PRN ×3 (00:06→11:56)
[2021-05-02] MEDS: PIPERACILLIN/TAZOBACTAM 3,375 MG in SODIUM CHLORIDE 0.9% 100 ML IV SCH ×3 (01:22→17:07)
[2021-05-02] MEDS: ONDANSETRON 4 MG/2 ML VIAL IV PRN ×2 (05:22→10:36)
[2021-05-02] MEDS: THYROID 60 MG TABLET PO SCH (05:31)
[2021-05-02] MEDS: ALBUTEROL/IPRATROPIUM 3 ML NEB RESP TX SCH ×3 (07:16→19:11)
[2021-05-02] MEDS ORDERED: CYANOCOBALAMIN 1000 MCG/1 ML VIAL IM SCH (09:00)
[2021-05-02 09:03] LABS: Basophils % 0.3 % (0.0-0.8); Eosinophils # 0.3 10*3/uL (0.0-0.87); Eosinophils % 2.8 % (0.00-10.9); Hematocrit 32.5 VOL% (35.7-47.0); Hemoglobin 10.5 GM/DL (12.0-16.0); Immature Granulocytes % 0.9 %; Lymphocytes # 2.1 10*3/uL (1.4-4.0); Mean Corpuscular HGB Conc 32.3 GM/DL (32-36); Mean Corpuscular Volume 88.6 FL (87-102); Mean Platelet Volume 8.7 FL (9.6-12.0); Monocytes % 8.6 % (1.7-12.7); Neutrophils % 67.4 % (38.7-73.9); Platelet Count 415 T/CUMM (130-400); Red Blood Count 3.67 MC/CUMM (3.8-5.5); Red Cell Distribution Width 15.7 % (9.3-17.3); White Blood Count 10.5 T/CUMM (4-12)
[2021-05-02 09:41] LABS: Osmolality,Calculated 261.7 MOS/KG (273-304); Potassium 4.2 MMOL/L (3.5-5.1)
[2021-05-02] MEDS: INSULIN REGULAR 100 UNIT/ML SUBCUT SCH ×4 (10:08→23:49)
[2021-05-02] MEDS: FOLIC ACID 1 MG TABLET PO SCH (10:34)
[2021-05-02] MEDS: BACLOFEN 10 MG TABLET PO SCH ×3 (10:34→21:12)
[2021-05-02] MEDS: PANTOPRAZOLE 40 MG TABLET PO SCH (10:34)
[2021-05-02] MEDS: FERROUS SULFATE 325 MG TABLET PO SCH (10:34)
[2021-05-02] MEDS: SULFAMETHOX/TRIMETHOPRIM 800-160 MG TABLET PO SCH (10:35)
[2021-05-02] MEDS: oxyCODONE ER 20 MG TABLET PO SCH ×2 (10:35→21:12)
[2021-05-02] MEDS: FLUCONAZOLE 200 MG TABLET PO SCH (10:35)
[2021-05-02] MEDS: predniSONE 5 MG TABLET PO SCH (10:35)
[2021-05-02] MEDS: predniSONE 10 MG TABLET PO SCH (10:35)
[2021-05-02] MEDS: cycloSPORINE OPH EMUL 1 VIAL BOTH EYES SCH ×2 (10:37→21:13)
[2021-05-02] MEDS: LINEZOLID INJ 600 MG/300 ML PREMIX IV SCH ×2 (10:38→23:03)
[2021-05-02] MEDS: SODIUM CHLORIDE 0.9% 1,000 ML IV SCH (10:50)
[2021-05-03] MEDS: ALBUTEROL/IPRATROPIUM 3 ML NEB RESP TX SCH ×4 (00:02→19:40)
[2021-05-03] MEDS: HYDROmorphone 2 MG/1 ML VIAL IV PRN ×2 (02:01→08:43)
[2021-05-03] MEDS: PIPERACILLIN/TAZOBACTAM 3,375 MG in SODIUM CHLORIDE 0.9% 100 ML IV SCH ×3 (02:02→19:35)
[2021-05-03 04:50] LABS: Basophils % 0.2 % (0.0-0.8); Eosinophils # 0.1 10*3/uL (0.0-0.87); Eosinophils % 0.7 % (0.00-10.9); Hematocrit 32.8 VOL% (35.7-47.0); Hemoglobin 10.5 GM/DL (12.0-16.0); Immature Granulocytes % 1.2 %; Immature Granulocytes Absolute 0.11 #; Lymphocytes # 1.2 10*3/uL (1.4-4.0); Lymphocytes % 12.9 % (21.3-54.2); Mean Corpuscular Volume 88.9 FL (87-102); Mean Platelet Volume 9.1 FL (9.6-12.0); Monocytes % 7.2 % (1.7-12.7); Neutrophils % 77.8 % (38.7-73.9); Platelet Count 489 T/CUMM (130-400); Red Blood Count 3.69 MC/CUMM (3.8-5.5); Red Cell Distribution Width 15.7 % (9.3-17.3); White Blood Count 9.6 T/CUMM (4-12)
[2021-05-03 05:20] LABS: Calcium 9.4 MG/DL (8.5-10.1); Osmolality,Calculated 265.4 MOS/KG (273-304); Potassium 3.9 MMOL/L (3.5-5.1)
[2021-05-03] MEDS: THYROID 60 MG TABLET PO SCH (06:41)
[2021-05-03] MEDS: INSULIN REGULAR 100 UNIT/ML SUBCUT SCH ×4 (08:07→21:44)
[2021-05-03 08:31] LABS: PT Patient Result 11.5 SECS (10.5-12.0)
[2021-05-03] MEDS: LINEZOLID INJ 600 MG/300 ML PREMIX IV SCH ×2 (08:43→09:27)
[2021-05-03] MEDS: BACLOFEN 10 MG TABLET PO SCH ×3 (09:26→21:43)
[2021-05-03] MEDS: FERROUS SULFATE 325 MG TABLET PO SCH (09:26)
[2021-05-03] MEDS: PANTOPRAZOLE 40 MG TABLET PO SCH (09:26)
[2021-05-03] MEDS: predniSONE 10 MG TABLET PO SCH (09:26)
[2021-05-03] MEDS: FOLIC ACID 1 MG TABLET PO SCH (09:26)
[2021-05-03] MEDS: SULFAMETHOX/TRIMETHOPRIM 800-160 MG TABLET PO SCH (09:26)
[2021-05-03] MEDS: predniSONE 5 MG TABLET PO SCH (09:26)
[2021-05-03] MEDS: FLUCONAZOLE 200 MG TABLET PO SCH (09:26)
[2021-05-03] MEDS: oxyCODONE ER 20 MG TABLET PO SCH ×2 (09:26→21:45)
[2021-05-03] MEDS: cycloSPORINE OPH EMUL 1 VIAL BOTH EYES SCH ×2 (09:34→21:45)
[2021-05-04] MEDS: ALBUTEROL/IPRATROPIUM 3 ML NEB RESP TX SCH ×4 (00:04→19:50)
[2021-05-04] MEDS: LINEZOLID INJ 600 MG/300 ML PREMIX IV SCH ×3 (02:40→21:00)
[2021-05-04] MEDS: THYROID 60 MG TABLET PO SCH (07:14)
[2021-05-04] MEDS ORDERED: LACTATED RINGERS 1,000 ML IV SCH (08:00)
[2021-05-04 08:40] LABS: Basophils # 0.1 10*3/uL (0.0-0.2); Basophils % 0.5 % (0.0-0.8); Eosinophils # 0.2 10*3/uL (0.0-0.87); Eosinophils % 1.6 % (0.00-10.9); Hematocrit 32.5 VOL% (35.7-47.0); Hemoglobin 10.7 GM/DL (12.0-16.0); Immature Granulocytes % 2.3 %; Immature Granulocytes Absolute 0.26 #; Lymphocytes # 2.6 10*3/uL (1.4-4.0); Lymphocytes % 22.8 % (21.3-54.2); Mean Corpuscular HGB Conc 32.9 GM/DL (32-36); Mean Corpuscular Volume 89.3 FL (87-102); Mean Platelet Volume 8.6 FL (9.6-12.0); Neutrophils % 65.8 % (38.7-73.9); Platelet Count 529 T/CUMM (130-400); Red Blood Count 3.64 MC/CUMM (3.8-5.5); Red Cell Distribution Width 15.7 % (9.3-17.3); White Blood Count 11.2 T/CUMM (4-12)
[2021-05-04] MEDS: INSULIN REGULAR 100 UNIT/ML SUBCUT SCH ×4 (08:49→22:35)
[2021-05-04 08:56] LABS: Calcium 9.2 MG/DL (8.5-10.1); Osmolality,Calculated 271.8 MOS/KG (273-304); Potassium 3.5 MMOL/L (3.5-5.1)
[2021-05-04] MEDS: cycloSPORINE OPH EMUL 1 VIAL BOTH EYES SCH ×2 (10:06→21:00)
[2021-05-04] MEDS: BACLOFEN 10 MG TABLET PO SCH ×3 (11:48→21:00)
[2021-05-04] MEDS ORDERED: propofoL 200 MG/20 ML VIAL IV ONE (12:20)
[2021-05-04] MEDS ORDERED: LIDOCAINE 2% 5 ML VIAL ONE (12:20)
[2021-05-04] MEDS: ONDANSETRON 4 MG/2 ML VIAL IV PRN (12:31)
[2021-05-04] MEDS: FLUCONAZOLE 200 MG TABLET PO SCH (13:24)
[2021-05-04] MEDS: oxyCODONE ER 20 MG TABLET PO SCH ×2 (13:24→21:00)
[2021-05-04] MEDS: SULFAMETHOX/TRIMETHOPRIM 800-160 MG TABLET PO SCH (13:24)
[2021-05-04] MEDS: predniSONE 10 MG TABLET PO SCH (13:24)
[2021-05-04] MEDS: FERROUS SULFATE 325 MG TABLET PO SCH (13:25)
[2021-05-04] MEDS: PIPERACILLIN/TAZOBACTAM 3,375 MG in SODIUM CHLORIDE 0.9% 100 ML IV SCH (13:25)
[2021-05-04] MEDS: FOLIC ACID 1 MG TABLET PO SCH (13:25)
[2021-05-04] MEDS: predniSONE 5 MG TABLET PO SCH (13:25)
[2021-05-04] MEDS: PANTOPRAZOLE 40 MG TABLET PO SCH (13:25)
[2021-05-05] MEDS: ALBUTEROL/IPRATROPIUM 3 ML NEB RESP TX SCH ×4 (00:55→19:08)
[2021-05-05] MEDS: PIPERACILLIN/TAZOBACTAM 3,375 MG in SODIUM CHLORIDE 0.9% 100 ML IV SCH ×3 (02:00→17:58)
[2021-05-05] MEDS: THYROID 60 MG TABLET PO SCH (06:14)
[2021-05-05 07:05] LABS: Calcium 9.2 MG/DL (8.5-10.1); Osmolality,Calculated 270.8 MOS/KG (273-304)
[2021-05-05] MEDS: INSULIN REGULAR 100 UNIT/ML SUBCUT SCH ×4 (08:02→21:31)
[2021-05-05] MEDS: cycloSPORINE OPH EMUL 1 VIAL BOTH EYES SCH ×2 (09:22→21:30)
[2021-05-05] MEDS: FLUCONAZOLE 200 MG TABLET PO SCH (09:22)
[2021-05-05] MEDS: oxyCODONE ER 20 MG TABLET PO SCH ×2 (09:22→21:29)
[2021-05-05] MEDS: PANTOPRAZOLE 40 MG TABLET PO SCH (09:22)
[2021-05-05] MEDS: BACLOFEN 10 MG TABLET PO SCH ×3 (09:22→21:29)
[2021-05-05] MEDS: FERROUS SULFATE 325 MG TABLET PO SCH (09:23)
[2021-05-05] MEDS: predniSONE 5 MG TABLET PO SCH (09:23)
[2021-05-05] MEDS: predniSONE 10 MG TABLET PO SCH (09:23)
[2021-05-05] MEDS: SULFAMETHOX/TRIMETHOPRIM 800-160 MG TABLET PO SCH (09:23)
[2021-05-05] MEDS: FOLIC ACID 1 MG TABLET PO SCH (09:25)
[2021-05-05] MEDS: LINEZOLID INJ 600 MG/300 ML PREMIX IV SCH ×2 (09:26→21:59)
[2021-05-05 12:23] LABS: Basophils # 0.1 10*3/uL (0.0-0.2); Basophils % 0.4 % (0.0-0.8); Eosinophils # 0.1 10*3/uL (0.0-0.87); Eosinophils % 0.8 % (0.00-10.9); Hematocrit 34.4 VOL% (35.7-47.0); Hemoglobin 10.9 GM/DL (12.0-16.0); Immature Granulocytes % 1.7 %; Immature Granulocytes Absolute 0.21 #; Lymphocytes # 1.5 10*3/uL (1.4-4.0); Mean Corpuscular HGB Conc 31.7 GM/DL (32-36); Mean Corpuscular Volume 90.3 FL (87-102); Mean Platelet Volume 8.4 FL (9.6-12.0); Monocytes % 4.7 % (1.7-12.7); Neutrophils % 80.4 % (38.7-73.9); Platelet Count 627 T/CUMM (130-400); Red Blood Count 3.81 MC/CUMM (3.8-5.5); Red Cell Distribution Width 16.1 % (9.3-17.3); White Blood Count 12.7 T/CUMM (4-12)
[2021-05-06] MEDS: ALBUTEROL/IPRATROPIUM 3 ML NEB RESP TX SCH ×4 (00:46→19:27)
[2021-05-06] MEDS: PIPERACILLIN/TAZOBACTAM 3,375 MG in SODIUM CHLORIDE 0.9% 100 ML IV SCH (02:27)
[2021-05-06] MEDS: THYROID 60 MG TABLET PO SCH (05:59)
[2021-05-06 07:22] LABS: Basophils # 0.1 10*3/uL (0.0-0.2); Basophils % 0.6 % (0.0-0.8); Eosinophils # 0.1 10*3/uL (0.0-0.87); Eosinophils % 1.4 % (0.00-10.9); Hemoglobin 10.7 GM/DL (12.0-16.0); Immature Granulocytes % 1.2 %; Immature Granulocytes Absolute 0.11 #; Lymphocytes # 2.8 10*3/uL (1.4-4.0); Lymphocytes % 31.1 % (21.3-54.2); Mean Corpuscular HGB Conc 32.4 GM/DL (32-36); Mean Corpuscular Volume 89.4 FL (87-102); Mean Platelet Volume 8.3 FL (9.6-12.0); Monocytes % 7.7 % (1.7-12.7); Platelet Count 621 T/CUMM (130-400); Red Blood Count 3.69 MC/CUMM (3.8-5.5); Red Cell Distribution Width 16.1 % (9.3-17.3)
[2021-05-06] MEDS: INSULIN REGULAR 100 UNIT/ML SUBCUT SCH ×4 (07:44→20:54)
[2021-05-06] MEDS ORDERED: TISSUE ADHESIVE 1 EACH APPLICATOR TOP ONE ×2 (09:39→11:43)
[2021-05-06] MEDS ORDERED: BUPIVACAINE MPF 0.25% 30 ML VIAL ONE (09:39)
[2021-05-06] MEDS ORDERED: LIDOCAINE 1%/EPI INJ 20 ML VIAL ONE (09:39)
[2021-05-06] MEDS ORDERED: ROCURONIUM 50 MG/5 ML VIAL IV ONE (09:56)
[2021-05-06] MEDS ORDERED: LIDOCAINE 2% 5 ML VIAL ONE (09:56)
[2021-05-06] MEDS ORDERED: fentaNYL 100 MCG/2 ML VIAL ONE (09:56)
[2021-05-06] MEDS ORDERED: propofoL 200 MG/20 ML VIAL IV ONE (09:56)
[2021-05-06] MEDS ORDERED: LACTATED RINGERS 1,000 ML IV SCH (10:30)
[2021-05-06] MEDS ORDERED: ONDANSETRON 4 MG/2 ML VIAL ONE (11:24)
[2021-05-06] MEDS ORDERED: LACTATED RINGERS 1,000 ML IV ONE (11:24)
[2021-05-06] MEDS ORDERED: DEXAMETHASONE 4 MG/1 ML VIAL ONE (11:24)
[2021-05-06] MEDS ORDERED: SEVOFLURANE 1 UNIT/15 MINUTE INH ONE (11:24)
[2021-05-06] MEDS ORDERED: SUGAMMADEX 200 MG/2 ML VIAL IV ONE (11:25)
[2021-05-06] MEDS ORDERED: HYDROmorphone 2 MG/1 ML VIAL ONE (11:32)
[2021-05-06] MEDS ORDERED: ONDANSETRON 4 MG/2 ML VIAL IV PRN (12:06)
[2021-05-06] MEDS: ONDANSETRON 4 MG/2 ML VIAL IV PRN (12:07)
[2021-05-06] MEDS: HYDROmorphone 2 MG/1 ML VIAL IV PRN ×3 (12:09→14:24)
[2021-05-06] MEDS ORDERED: MEPERIDINE 25 MG/1 ML VIAL ONE ×2 (12:17→12:30)
[2021-05-06] MEDS: MEPERIDINE 50 MG/1 ML VIAL IV PRN ×2 (12:19→12:30)
[2021-05-06] MEDS: SULFAMETHOX/TRIMETHOPRIM 800-160 MG TABLET PO SCH (13:36)
[2021-05-06] MEDS: predniSONE 10 MG TABLET PO SCH (13:37)
[2021-05-06] MEDS: FLUCONAZOLE 200 MG TABLET PO SCH (13:37)
[2021-05-06] MEDS: PANTOPRAZOLE 40 MG TABLET PO SCH (13:37)
[2021-05-06] MEDS: predniSONE 5 MG TABLET PO SCH (13:37)
[2021-05-06] MEDS: FOLIC ACID 1 MG TABLET PO SCH (13:37)
[2021-05-06] MEDS: BACLOFEN 10 MG TABLET PO SCH ×3 (13:37→20:54)
[2021-05-06] MEDS: oxyCODONE ER 20 MG TABLET PO SCH ×2 (13:38→20:55)
[2021-05-06] MEDS: FERROUS SULFATE 325 MG TABLET PO SCH (13:38)
[2021-05-06] MEDS: LINEZOLID INJ 600 MG/300 ML PREMIX IV SCH ×2 (13:39→20:53)
[2021-05-06] MEDS: cycloSPORINE OPH EMUL 1 VIAL BOTH EYES SCH ×2 (13:45→20:55)
[2021-05-06] MEDS: PROMETHAZINE 25 MG/1 ML VIAL IM PRN (14:26)
[2021-05-06] MEDS ORDERED: FUROSEMIDE 20 MG/2 ML VIAL IV ONE (15:18)
[2021-05-06] MEDS: oxyCODONE/ACETAMINOPHEN 5-325 MG TABLET PO PRN (18:17)
[2021-05-07] MEDS: ALBUTEROL/IPRATROPIUM 3 ML NEB RESP TX SCH ×2 (00:37→07:30)
[2021-05-07] MEDS: ACETAMINOPHEN 325 MG TABLET PO PRN (03:06)
[2021-05-07 05:39] LABS: Basophils % 0.1 % (0.0-0.8); Hematocrit 34.2 VOL% (35.7-47.0); Hemoglobin 10.9 GM/DL (12.0-16.0); Immature Granulocytes % 0.9 %; Immature Granulocytes Absolute 0.13 #; Lymphocytes % 6.7 % (21.3-54.2); Mean Corpuscular HGB Conc 31.9 GM/DL (32-36); Mean Corpuscular Volume 89.5 FL (87-102); Mean Platelet Volume 8.1 FL (9.6-12.0); Monocytes % 3.8 % (1.7-12.7); Neutrophils % 88.5 % (38.7-73.9); Platelet Count 641 T/CUMM (130-400); Red Blood Count 3.82 MC/CUMM (3.8-5.5); Red Cell Distribution Width 15.9 % (9.3-17.3); White Blood Count 14.9 T/CUMM (4-12)
[2021-05-07 05:54] LABS: Calcium 9.4 MG/DL (8.5-10.1); Osmolality,Calculated 267.2 MOS/KG (273-304); Potassium 3.9 MMOL/L (3.5-5.1)
[2021-05-07] MEDS: THYROID 60 MG TABLET PO SCH (06:32)
[2021-05-07] MEDS: oxyCODONE/ACETAMINOPHEN 5-325 MG TABLET PO PRN (06:37)
[2021-05-07] MEDS: SULFAMETHOX/TRIMETHOPRIM 800-160 MG TABLET PO SCH (09:58)
[2021-05-07] MEDS: predniSONE 10 MG TABLET PO SCH (09:59)
[2021-05-07] MEDS: oxyCODONE ER 20 MG TABLET PO SCH (09:59)
[2021-05-07] MEDS: cycloSPORINE OPH EMUL 1 VIAL BOTH EYES SCH (09:59)
[2021-05-07] MEDS: BACLOFEN 10 MG TABLET PO SCH (09:59)
[2021-05-07] MEDS: FERROUS SULFATE 325 MG TABLET PO SCH (09:59)
[2021-05-07] MEDS: PANTOPRAZOLE 40 MG TABLET PO SCH (09:59)
[2021-05-07] MEDS: predniSONE 5 MG TABLET PO SCH (11:23)
[2021-05-07] MEDS: FOLIC ACID 1 MG TABLET PO SCH (11:23)
[2021-05-07] MEDS: INSULIN REGULAR 100 UNIT/ML SUBCUT SCH ×2 (11:24→11:50)
[2021-05-07 11:58] VITALS: BP 137/73
[2021-05-07] MEDS: LINEZOLID INJ 600 MG/300 ML PREMIX IV SCH (12:13)
== END 2021-05-07 13:45 | disposition home or self-care (01) | DRG 987 ==
LOC: N.ED 13:02 → N.EDINP 15:21 → SUATTDRO 15:21 → N.5E 17:08
PROVIDERS: ADMIT Internal Medicine; ATTEND Internal Medicine

== ENCOUNTER 2021-05-21 18:53 | Inpatient (IN) ==
[2021-05-21] MEDS ORDERED: ONDANSETRON 4 MG/2 ML VIAL IV ONE (21:35)
[2021-05-21] MEDS ORDERED: MORPHINE 2 MG/1 ML SYRINGE IV STA (21:35)
[2021-05-21 22:00] LABS: Basophils # 0.1 10*3/uL (0.0-0.2); Basophils % 0.5 % (0.0-0.8); Eosinophils # 0.4 10*3/uL (0.0-0.87); Eosinophils % 2.5 % (0.00-10.9); Hematocrit 39.8 VOL% (35.7-47.0); Hemoglobin 12.7 GM/DL (12.0-16.0); Immature Granulocytes % 2.1 %; Lymphocytes # 2.8 10*3/uL (1.4-4.0); Lymphocytes % 19.5 % (21.3-54.2); Mean Corpuscular HGB Conc 31.9 GM/DL (32-36); Mean Corpuscular Volume 89.8 FL (87-102); Mean Platelet Volume 8.7 FL (9.6-12.0); Monocytes % 8.5 % (1.7-12.7); Neutrophils % 66.9 % (38.7-73.9); Platelet Count 460 T/CUMM (130-400); Red Blood Count 4.43 MC/CUMM (3.8-5.5); Red Cell Distribution Width 17.3 % (9.3-17.3); White Blood Count 14.2 T/CUMM (4-12)
[2021-05-21] MEDS ORDERED: SODIUM CHLORIDE 0.9% 1,000 ML IV STA (22:12)
[2021-05-21 22:20] LABS: Alanine Aminotransferase 22 U/L (13-56); Albumin 3.3 G/DL (3.4-5.0); Alkaline Phosphatase 43 U/L (45-117); Aspartate Amino Transferase 18 U/L (0-37); Bilirubin,Total < 0.39 MG/DL (0.20-1.00); Blood Urea Nitrogen 10 MG/DL (7-18); Calcium 9.4 MG/DL (8.5-10.1); Carbon Dioxide 26 MMOL/L (21-32); Estimated Glom Filtration Rate 60 ML/MIN; Glucose 91 MG/DL (74-106); Osmolality,Calculated 260.7 MOS/KG (273-304); Sodium 131 MMOL/L (136-145); Total Protein 7.7 G/DL (6.4-8.2)
[2021-05-21 23:03] LABS: Bilirubin,Urine Negative (Negative); Blood, Urine Moderate mg/dL (Negative); Glucose,Urine (UA) Negative (Negative); Ketones,Urine Negative (Negative); Mucus,Urine Occasional /LPF (Occasional); Nitrite,Urine Negative (Negative); Protein,Urine 30 MG/DL; RBC,Urine 12 /HPF (0-4); Squamous Epithelial Cell,Urine Occasional /HPF (0-10); Urine Appearance CLEAR (Clear); Urine Color Yellow (Yellow); Urine Specific Gravity 1.038 (1.001-1.035); Urine Urobilinogen < 2.0 EU/DL (0.2-1.0)
[2021-05-22] MEDS ORDERED: fentaNYL 100 MCG/2 ML VIAL IV STA (00:34)
[2021-05-22] MEDS ORDERED: diphenhydrAMINE 50 MG/1 ML VIAL ONE (01:17)
[2021-05-22] MEDS ORDERED: diphenhydrAMINE 50 MG/1 ML VIAL IV STA (01:18)
[2021-05-22] MEDS ORDERED: VANCOMYCIN INJ 2,000 MG in SODIUM CHLORIDE 0.9% 500 ML IV STA (01:23)
[2021-05-22] MEDS ORDERED: CEFEPIME 2,000 MG in SODIUM CHLORIDE 0.9% 100 ML IV STA (01:24)
[2021-05-22] MEDS ORDERED: ACETAMINOPHEN 500 MG TABLET PO STA (01:28)
[2021-05-22] MEDS ORDERED: GLUCAGON 1 MG VIAL IM PRN (02:28)
[2021-05-22] MEDS ORDERED: DEXTROSE 50% 25 GM/50 ML VIAL IV PRN (02:28)
[2021-05-22] MEDS ORDERED: SODIUM CHLORIDE 0.9% 1,000 ML IV STA (02:35)
[2021-05-22] MEDS ORDERED: SODIUM CHLORIDE 0.9% 1,000 ML IV ONE (03:35)
[2021-05-22] MEDS ORDERED: PIPERACILLIN/TAZOBACTAM 3,375 MG in SODIUM CHLORIDE 0.9% 100 ML IV SCH (04:00)
[2021-05-22] MEDS: ONDANSETRON 4 MG/2 ML VIAL IV PRN ×4 (04:02→17:30)
[2021-05-22] MEDS: MORPHINE 2 MG/1 ML SYRINGE IV PRN ×2 (04:05→08:29)
[2021-05-22] MEDS ORDERED: MAGNESIUM SULF RIDER 2 GM/50 ML PREMIX IV ONE (04:50)
[2021-05-22] MEDS: SODIUM CHLORIDE 0.9% 1,000 ML IV SCH ×3 (05:00→19:14)
[2021-05-22 05:01] LABS: Basophils # 0.1 10*3/uL (0.0-0.2); Basophils % 0.8 % (0.0-0.8); Eosinophils # 0.3 10*3/uL (0.0-0.87); Hemoglobin 12.2 GM/DL (12.0-16.0); Immature Granulocytes % 2.1 %; Immature Granulocytes Absolute 0.28 #; Lymphocytes # 2.9 10*3/uL (1.4-4.0); Lymphocytes % 22.1 % (21.3-54.2); Mean Corpuscular HGB Conc 31.3 GM/DL (32-36); Mean Corpuscular Volume 90.7 FL (87-102); Mean Platelet Volume 8.6 FL (9.6-12.0); Monocytes % 10.4 % (1.7-12.7); Neutrophils % 62.6 % (38.7-73.9); Platelet Count 422 T/CUMM (130-400); Red Cell Distribution Width 17.5 % (9.3-17.3); White Blood Count 13.3 T/CUMM (4-12)
[2021-05-22 05:24] LABS: Albumin 3.2 G/DL (3.4-5.0); Bilirubin,Total 0.7 MG/DL (0.20-1.00); Calcium 8.6 MG/DL (8.5-10.1); Osmolality,Calculated 259.7 MOS/KG (273-304); Potassium 3.7 MMOL/L (3.5-5.1); Total Protein 7.3 G/DL (6.4-8.2)
[2021-05-22] MEDS: hydrALAZINE 20 MG/1 ML VIAL IV PRN ×2 (06:19→14:13)
[2021-05-22] MEDS: INSULIN LISPRO 100 UNIT/ML SUBCUT SCH ×4 (07:33→21:09)
[2021-05-22] MEDS ORDERED: cefTRIAXone 2,000 MG in SODIUM CHLORIDE 0.9% 100 ML IV SCH (08:00)
[2021-05-22] MEDS ORDERED: CEFEPIME 2,000 MG in SODIUM CHLORIDE 0.9% 100 ML IV SCH (09:00)
[2021-05-22] MEDS ORDERED: AMPICILLIN INJ 1,000 MG in SODIUM CHLORIDE 0.9% 100 ML IV SCH (09:00)
[2021-05-22] MEDS ORDERED: cefTRIAXone 1,000 MG VIAL ONE (09:25)
[2021-05-22] MEDS: ACYCLOVIR INJ 500 MG in SODIUM CHLORIDE 0.9% 100 ML IV SCH ×2 (09:50→16:06)
[2021-05-22] MEDS: PANTOPRAZOLE 40 MG VIAL IV SCH ×2 (11:24→20:49)
[2021-05-22] MEDS: HYDROmorphone 2 MG/1 ML VIAL IV PRN ×3 (12:37→22:53)
[2021-05-22] MEDS: CEFEPIME 2,000 MG in SODIUM CHLORIDE 0.9% 100 ML IV SCH ×2 (13:49→20:54)
[2021-05-22] MEDS: VANCOMYCIN INJ 1,500 MG in SODIUM CHLORIDE 0.9% 500 ML IV SCH (15:22)
[2021-05-22] MEDS: ACETAMINOPHEN 325 MG TABLET PO PRN ×2 (16:12→20:49)
[2021-05-23] MEDS: ACYCLOVIR INJ 500 MG in SODIUM CHLORIDE 0.9% 100 ML IV SCH ×3 (00:40→21:30)
[2021-05-23] MEDS: ACETAMINOPHEN 325 MG TABLET PO PRN ×2 (00:44→05:43)
[2021-05-23] MEDS: ONDANSETRON 4 MG/2 ML VIAL IV PRN ×4 (01:48→17:18)
[2021-05-23] MEDS: MORPHINE 2 MG/1 ML SYRINGE IV PRN ×2 (03:30→08:30)
[2021-05-23] MEDS: CEFEPIME 2,000 MG in SODIUM CHLORIDE 0.9% 100 ML IV SCH ×3 (03:33→20:45)
[2021-05-23] MEDS: VANCOMYCIN INJ 1,500 MG in SODIUM CHLORIDE 0.9% 500 ML IV SCH (04:00)
[2021-05-23] MEDS: SODIUM CHLORIDE 0.9% 1,000 ML IV SCH ×3 (04:35→20:43)
[2021-05-23] MEDS: INSULIN LISPRO 100 UNIT/ML SUBCUT SCH ×4 (08:18→21:39)
[2021-05-23] MEDS: PANTOPRAZOLE 40 MG VIAL IV SCH ×2 (08:35→20:43)
[2021-05-23] MEDS ORDERED: HYDROmorphone 2 MG/1 ML VIAL IV ONE (09:43)
[2021-05-23] MEDS ORDERED: ACETAMINOPHEN 650 MG SUPP RECTAL PRN (09:44)
[2021-05-23] MEDS: METOCLOPRAMIDE 10 MG/2 ML VIAL IV PRN ×2 (13:18→21:35)
[2021-05-23] MEDS: HYDROmorphone 2 MG/1 ML VIAL IV PRN ×3 (13:19→21:28)
[2021-05-23] MEDS: LINEZOLID INJ 600 MG/300 ML PREMIX IV SCH (14:22)
[2021-05-23] MEDS ORDERED: ACYCLOVIR 800 MG TABLET PO SCH (18:00)
[2021-05-24] MEDS: LINEZOLID INJ 600 MG/300 ML PREMIX IV SCH ×2 (01:15→13:55)
[2021-05-24] MEDS: HYDROmorphone 2 MG/1 ML VIAL IV PRN ×3 (01:36→09:58)
[2021-05-24] MEDS: CEFEPIME 2,000 MG in SODIUM CHLORIDE 0.9% 100 ML IV SCH (04:37)
[2021-05-24] MEDS: ACYCLOVIR INJ 500 MG in SODIUM CHLORIDE 0.9% 100 ML IV SCH ×3 (05:17→21:50)
[2021-05-24] MEDS: METOCLOPRAMIDE 10 MG/2 ML VIAL IV PRN ×2 (05:45→13:37)
[2021-05-24 06:48] LABS: Basophils % 0.4 % (0.0-0.8); Eosinophils # 0.3 10*3/uL (0.0-0.87); Eosinophils % 2.7 % (0.00-10.9); Hematocrit 31.9 VOL% (35.7-47.0); Hemoglobin 10.3 GM/DL (12.0-16.0); Immature Granulocytes % 0.8 %; Immature Granulocytes Absolute 0.08 #; Lymphocytes # 1.8 10*3/uL (1.4-4.0); Mean Corpuscular HGB Conc 32.3 GM/DL (32-36); Mean Corpuscular Volume 87.9 FL (87-102); Monocytes % 10.5 % (1.7-12.7); Neutrophils % 66.6 % (38.7-73.9); Platelet Count 350 T/CUMM (130-400); Red Blood Count 3.63 MC/CUMM (3.8-5.5); Red Cell Distribution Width 16.8 % (9.3-17.3); White Blood Count 9.7 T/CUMM (4-12)
[2021-05-24 07:27] LABS: Calcium 8.2 MG/DL (8.5-10.1); Osmolality,Calculated 263.4 MOS/KG (273-304); Potassium 3.1 MMOL/L (3.5-5.1)
[2021-05-24] MEDS: ONDANSETRON 4 MG/2 ML VIAL IV PRN ×2 (07:59→12:20)
[2021-05-24] MEDS: SODIUM CHLORIDE 0.9% 1,000 ML IV SCH (08:05)
[2021-05-24] MEDS: INSULIN LISPRO 100 UNIT/ML SUBCUT SCH ×4 (08:19→21:54)
[2021-05-24] MEDS ORDERED: POTASSIUM CHLORIDE 20 MEQ TABLET PO ONE (09:00)
[2021-05-24] MEDS: PANTOPRAZOLE 40 MG VIAL IV SCH ×2 (09:26→21:11)
[2021-05-24] MEDS ORDERED: HYDROmorphone 2 MG/1 ML VIAL IV PRN (11:28)
[2021-05-24] MEDS ORDERED: oxyCODONE/ACETAMINOPHEN 5-325 MG TABLET PO PRN (13:26)
[2021-05-24] MEDS: oxyCODONE ER 20 MG TABLET PO SCH ×2 (14:54→21:59)
[2021-05-24] MEDS: GABAPENTIN 300 MG CAPSULE PO SCH ×2 (14:56→20:44)
[2021-05-24] MEDS ORDERED: ZIPRASIDONE 20 MG/1 ML VIAL IM ONE (16:08)
[2021-05-24] MEDS: CEFEPIME 1,000 MG in SODIUM CHLORIDE 0.9% 100 ML IV SCH ×2 (16:51→21:09)
[2021-05-24] MEDS: BUTALBITAL/ACETAMIN/CAFFEINE 50-325-40 MG TABLET PO PRN (18:09)
[2021-05-24] MEDS: cycloSPORINE OPH EMUL 1 VIAL BOTH EYES SCH (23:15)
[2021-05-25] MEDS: LINEZOLID INJ 600 MG/300 ML PREMIX IV SCH (01:52)
[2021-05-25] MEDS: CEFEPIME 1,000 MG in SODIUM CHLORIDE 0.9% 100 ML IV SCH ×2 (03:59→09:36)
[2021-05-25] MEDS: ACYCLOVIR INJ 500 MG in SODIUM CHLORIDE 0.9% 100 ML IV SCH ×2 (05:01→14:33)
[2021-05-25] MEDS ORDERED: MAGNESIUM SULF RIDER 2 GM/50 ML PREMIX IV ONE (07:43)
[2021-05-25] MEDS ORDERED: LINEZOLID 600 MG TABLET PO SCH (09:00)
[2021-05-25] MEDS ORDERED: FOLIC ACID 1 MG TABLET PO SCH (09:00)
[2021-05-25] MEDS ORDERED: THYROID 60 MG TABLET PO SCH (09:00)
[2021-05-25] MEDS ORDERED: PANTOPRAZOLE 40 MG TABLET PO SCH (09:00)
[2021-05-25] MEDS ORDERED: HYDROXYCHLOROQUINE 200 MG TABLET PO SCH (09:00)
[2021-05-25] MEDS ORDERED: FERROUS SULFATE 325 MG TABLET PO SCH (09:00)
[2021-05-25] MEDS: INSULIN LISPRO 100 UNIT/ML SUBCUT SCH ×2 (09:21→12:26)
[2021-05-25] MEDS: oxyCODONE ER 20 MG TABLET PO SCH (09:23)
[2021-05-25] MEDS: GABAPENTIN 300 MG CAPSULE PO SCH (09:23)
[2021-05-25 09:29] LABS: Basophils % 0.4 % (0.0-0.8); Eosinophils # 0.5 10*3/uL (0.0-0.87); Eosinophils % 4.7 % (0.00-10.9); Hematocrit 31.1 VOL% (35.7-47.0); Hemoglobin 10.1 GM/DL (12.0-16.0); Immature Granulocytes % 0.8 %; Immature Granulocytes Absolute 0.08 #; Lymphocytes # 2.5 10*3/uL (1.4-4.0); Lymphocytes % 26.2 % (21.3-54.2); Mean Corpuscular HGB Conc 32.5 GM/DL (32-36); Mean Corpuscular Volume 87.9 FL (87-102); Mean Platelet Volume 8.6 FL (9.6-12.0); Monocytes % 8.3 % (1.7-12.7); Neutrophils % 59.6 % (38.7-73.9); Platelet Count 373 T/CUMM (130-400); Red Blood Count 3.54 MC/CUMM (3.8-5.5); White Blood Count 9.6 T/CUMM (4-12)
[2021-05-25] MEDS: cycloSPORINE OPH EMUL 1 VIAL BOTH EYES SCH (09:36)
[2021-05-25 09:43] LABS: Calcium 8.3 MG/DL (8.5-10.1); Osmolality,Calculated 273.5 MOS/KG (273-304)
[2021-05-25] MEDS ORDERED: POTASSIUM CHLORIDE 20 MEQ TABLET PO ONE (11:00)
[2021-05-25 11:57] VITALS: BP 142/80
[2021-05-25] MEDS: BUTALBITAL/ACETAMIN/CAFFEINE 50-325-40 MG TABLET PO PRN (12:25)
[2021-05-25] MEDS: SODIUM CHLORIDE 0.9% 1,000 ML IV SCH ×3 (14:33→15:09)
== END 2021-05-25 14:01 | disposition home or self-care (01) | DRG 595 ==
LOC: N.ED 18:53 → N.EDINP 05-22 02:33 → SUATTDRO 05-22 02:33 → N.5E 05-22 14:45
PROVIDERS: ADMIT Internal Medicine; ATTEND Internal Medicine

== ENCOUNTER 2021-12-28 11:43 | Observation (INO) ==
[2021-12-28 12:37] LABS: Basophils % 0.3 % (0.0-0.8); Eosinophils % 0.2 % (0.00-10.9); Hematocrit 35.7 VOL% (35.7-47.0); Hemoglobin 11.4 GM/DL (12.0-16.0); Immature Granulocytes % 1.5 %; Immature Granulocytes Absolute 0.23 #; Lymphocytes % 6.1 % (21.3-54.2); Mean Corpuscular HGB Conc 31.9 GM/DL (32-36); Mean Corpuscular Volume 94.2 FL (87-102); Mean Platelet Volume 8.5 FL (9.6-12.0); Monocytes # 0.6 10*3/uL (0.11-0.8); Monocytes % 3.5 % (1.7-12.7); Neutrophils % 88.4 % (38.7-73.9); Platelet Count 409 T/CUMM (130-400); Red Blood Count 3.79 MC/CUMM (3.8-5.5); Red Cell Distribution Width 15.6 % (9.3-17.3); White Blood Count 15.7 T/CUMM (4-12)
[2021-12-28 12:54] LABS: Alanine Aminotransferase 21 U/L (13-56); Alkaline Phosphatase 27 U/L (45-117); Aspartate Amino Transferase 21 U/L (0-37); Bilirubin,Total < 0.39 MG/DL (0.20-1.00); Blood Urea Nitrogen 29 MG/DL (7-18); Calcium 9.3 MG/DL (8.5-10.1); Carbon Dioxide 27 MMOL/L (21-32); Chloride 107 MMOL/L (98-107); Glucose 160 MG/DL (74-106); Osmolality,Calculated 287.4 MOS/KG (273-304); Potassium 4.4 MMOL/L (3.5-5.1); Sodium 140 MMOL/L (136-145); Total Protein 6.4 G/DL (6.4-8.2)
[2021-12-28] MEDS ORDERED: HEPARIN 5,000 UNIT/1 ML VIAL IV STA (13:58)
[2021-12-28] MEDS ORDERED: HEPARIN DRIP 25,000 UNITS/500 ML PREMIX IV SCH (14:00)
[2021-12-28 14:43] LABS: INR 0.9; PT Patient Result 10.2 SECS (10.5-12.0)
[2021-12-28] MEDS ORDERED: ACETAMINOPHEN 325 MG TABLET PO PRN (15:27)
[2021-12-28] MEDS ORDERED: GLUCAGON 1 MG VIAL IM PRN (15:27)
[2021-12-28] MEDS ORDERED: ONDANSETRON 4 MG/2 ML VIAL IV PRN (15:27)
[2021-12-28] MEDS ORDERED: PANTOPRAZOLE 40 MG TABLET PO PRN (15:32)
[2021-12-28] MEDS ORDERED: DEXTROSE 10% 250 ML BAG IV PRN (15:32)
[2021-12-28] MEDS ORDERED: hydrALAZINE 20 MG/1 ML VIAL IV STA (16:21)
[2021-12-28] MEDS: APIXABAN 5 MG TABLET PO SCH ×2 (16:25→20:31)
[2021-12-28] MEDS: oxyCODONE/ACETAMINOPHEN 5-325 MG TABLET PO PRN (17:24)
[2021-12-28] MEDS: cycloSPORINE OPH EMUL 1 VIAL BOTH EYES SCH (20:31)
[2021-12-28] MEDS: oxyCODONE ER 20 MG TABLET PO SCH (20:32)
[2021-12-28] MEDS: GABAPENTIN 300 MG CAPSULE PO SCH (20:32)
[2021-12-29] MEDS: oxyCODONE/ACETAMINOPHEN 5-325 MG TABLET PO PRN (03:31)
[2021-12-29 04:38] LABS: Basophils % 0.2 % (0.0-0.8); Eosinophils # 0.1 10*3/uL (0.0-0.87); Eosinophils % 0.7 % (0.00-10.9); Hematocrit 32.6 VOL% (35.7-47.0); Hemoglobin 10.3 GM/DL (12.0-16.0); Immature Granulocytes % 1.5 %; Immature Granulocytes Absolute 0.18 #; Lymphocytes # 2.3 10*3/uL (1.4-4.0); Lymphocytes % 19.2 % (21.3-54.2); Mean Corpuscular HGB Conc 31.6 GM/DL (32-36); Mean Corpuscular Volume 92.9 FL (87-102); Mean Platelet Volume 8.5 FL (9.6-12.0); Monocytes # 0.8 10*3/uL (0.11-0.8); Monocytes % 6.4 % (1.7-12.7); Platelet Count 418 T/CUMM (130-400); Red Blood Count 3.51 MC/CUMM (3.8-5.5); Red Cell Distribution Width 15.7 % (9.3-17.3); White Blood Count 12.2 T/CUMM (4-12)
[2021-12-29 05:05] LABS: Alanine Aminotransferase 19 U/L (13-56); Albumin 2.5 G/DL (3.4-5.0); Alkaline Phosphatase 24 U/L (45-117); Aspartate Amino Transferase 14 U/L (0-37); Bilirubin,Total < 0.39 MG/DL (0.20-1.00); Blood Urea Nitrogen 24 MG/DL (7-18); Calcium 8.6 MG/DL (8.5-10.1); Carbon Dioxide 25 MMOL/L (21-32); Chloride 107 MMOL/L (98-107); Glucose 85 MG/DL (74-106); Osmolality,Calculated 281.4 MOS/KG (273-304); Potassium 4.2 MMOL/L (3.5-5.1); Sodium 140 MMOL/L (136-145); Total Protein 6.1 G/DL (6.4-8.2)
[2021-12-29] MEDS: GABAPENTIN 300 MG CAPSULE PO SCH (08:26)
[2021-12-29] MEDS: APIXABAN 5 MG TABLET PO SCH (08:26)
[2021-12-29] MEDS: oxyCODONE ER 20 MG TABLET PO SCH (08:27)
[2021-12-29 08:45] VITALS: BP 133/82
[2021-12-29] MEDS ORDERED: valACYclovir 500 MG TABLET PO SCH (09:00)
[2021-12-29] MEDS ORDERED: EZETIMIBE 10 MG TABLET PO SCH (09:00)
[2021-12-29] MEDS ORDERED: lisinopriL 20 MG TABLET PO SCH (09:00)
[2021-12-29] MEDS ORDERED: THYROID 30 MG PO SCH (09:00)
[2021-12-29] MEDS ORDERED: FENOFIBRATE 160 MG TABLET PO SCH (09:00)
[2021-12-29] MEDS ORDERED: FOLIC ACID 1 MG TABLET PO SCH (09:00)
[2021-12-29] MEDS ORDERED: predniSONE 5 MG TABLET PO SCH (09:00)
[2021-12-29] MEDS: cycloSPORINE OPH EMUL 1 VIAL BOTH EYES SCH (09:20)
[2022-01-02] MEDS ORDERED: CYANOCOBALAMIN 1000 MCG/1 ML VIAL IM SCH (09:00)
== END 2021-12-29 13:00 | disposition home or self-care (01) ==
LOC: N.ED 11:43 → N.EDINP 11:43 → N.TELEN 16:56
PROVIDERS: ADMIT Internal Medicine Geriatric Medicine; ATTEND Internal Medicine Geriatric Medicine

== ENCOUNTER 2022-09-05 23:18 | Inpatient (IN) ==
[2022-09-06] MEDS ORDERED: NALOXONE 0.4 MG/ML VIAL IV STA (00:38)
[2022-09-06 00:48] LABS: Basophils # 0.1 10*3/uL (0.0-0.2); Basophils % 0.4 % (0.0-0.8); Eosinophils # 0.1 10*3/uL (0.0-0.87); Eosinophils % 0.4 % (0.00-10.9); Hemoglobin 9.9 GM/DL (12.0-16.0); Immature Granulocytes % 1.4 %; Immature Granulocytes Absolute 0.33 #; Lymphocytes # 2.6 10*3/uL (1.4-4.0); Mean Corpuscular HGB Conc 31.9 GM/DL (32-36); Mean Corpuscular Volume 88.3 FL (87-102); Mean Platelet Volume 8.5 FL (9.6-12.0); Monocytes # 1.7 10*3/uL (0.11-0.8); Monocytes % 7.1 % (1.7-12.7); Neutrophils % 79.7 % (38.7-73.9); Platelet Count 446 T/CUMM (130-400); Red Blood Count 3.51 MC/CUMM (3.8-5.5); Red Cell Distribution Width 18.2 % (9.3-17.3)
[2022-09-06 00:56] LABS: INR 1.1; PT Patient Result 11.7 SECS (10.1-12.1); Partial Thromboplastin Time 33.8 SECS (23.7-32.9)
[2022-09-06 01:07] LABS: Albumin 2.9 G/DL (3.4-5.0); Bilirubin,Total 0.5 MG/DL (0.20-1.00); Calcium 9.4 MG/DL (8.5-10.1); Osmolality,Calculated 277.8 MOS/KG (273-304); Total Protein 6.7 G/DL (6.4-8.2)
[2022-09-06 01:09] LABS: Eosinophils 1 % (0-10); Lymphocytes 13 % (20-55); Total Cells Counted 100
[2022-09-06 01:10] LABS: Platelet Estimate Increased
[2022-09-06 01:43] LABS: Amorphous Crystals,Urine Few /HPF (Few); Mucus,Urine Few /LPF (Occasional); Squamous Epithelial Cell,Urine Occasional /HPF (0-10)
[2022-09-06 01:44] LABS: Urine Appearance Slightly Hazy (Clear); Urine Color Dark yellow (Yellow)
[2022-09-06 01:45] LABS: Bilirubin,Urine Moderate mg/dL (Negative); Blood, Urine Moderate mg/dL (Negative); Glucose,Urine (UA) Negative (Negative); Ketones,Urine Trace mg/dL (Negative); Nitrite,Urine Negative (Negative); Protein,Urine 100 mg/dL (Negative); Urine Urobilinogen 0.2 eU/dL (<2.0)
[2022-09-06 01:53] LABS: Barbiturates Screen,Urine Negative (Negative); Benzodiazepines Screen,Urine Negative (Negative); Cannabinoid Screen,Urine Negative (Negative); Opiate Screen,Urine Positive (Negative); Phencyclidine Screen,Urine Negative (Negative)
[2022-09-06] MEDS ORDERED: SODIUM CHLORIDE 0.9% 2,000 ML IV STA (02:17)
[2022-09-06] MEDS ORDERED: CLINDAMYCIN INJ 600 MG/50 ML PREMIX IV STA (02:17)
[2022-09-06] MEDS ORDERED: cefTRIAXone 1,000 MG in SODIUM CHLORIDE 0.9% 100 ML IV STA (02:17)
[2022-09-06] MEDS ORDERED: ACETAMINOPHEN 325 MG TABLET PO PRN (04:36)
[2022-09-06] MEDS ORDERED: GLUCAGON 1 MG VIAL IM PRN (04:36)
[2022-09-06] MEDS ORDERED: DEXTROSE 10% 250 ML BAG IV PRN (04:55)
[2022-09-06 06:08] LABS: Thyroid Stimulating Hormone 0.824 uIU/ml (0.358-3.74)
[2022-09-06 06:34] LABS: Protein/Creatinine Ratio,Urine 0.8 RATIO
[2022-09-06] MEDS: SODIUM CHLORIDE 0.9% 1,000 ML IV SCH ×2 (07:08→17:18)
[2022-09-06] MEDS: INSULIN LISPRO 100 UNIT/ML SUBCUT SCH ×4 (07:30→22:16)
[2022-09-06] MEDS: THYROID 60 MG TABLET PO SCH (08:59)
[2022-09-06] MEDS: PANTOPRAZOLE 40 MG TABLET PO SCH (08:59)
[2022-09-06] MEDS ORDERED: APIXABAN 5 MG TABLET PO SCH (09:00)
[2022-09-06] MEDS ORDERED: ENOXAPARIN 40 MG/0.4 ML SYRINGE SUBCUT SCH (21:00)
[2022-09-07] MEDS: cefTRIAXone 1,000 MG in SODIUM CHLORIDE 0.9% 100 ML IV SCH (03:40)
[2022-09-07] MEDS: SODIUM CHLORIDE 0.9% 1,000 ML IV SCH ×4 (03:43→20:20)
[2022-09-07 05:51] LABS: Basophils % 0.1 % (0.0-0.8); Eosinophils # 0.2 10*3/uL (0.0-0.87); Eosinophils % 1.3 % (0.00-10.9); Hematocrit 25.7 VOL% (35.7-47.0); Hemoglobin 8.1 GM/DL (12.0-16.0); Immature Granulocytes Absolute 0.13 #; Lymphocytes # 1.5 10*3/uL (1.4-4.0); Lymphocytes % 11.3 % (21.3-54.2); Mean Corpuscular HGB Conc 31.5 GM/DL (32-36); Mean Platelet Volume 8.7 FL (9.6-12.0); Monocytes # 1.1 10*3/uL (0.11-0.8); Monocytes % 8.3 % (1.7-12.7); Platelet Count 398 T/CUMM (130-400); Red Blood Count 2.92 MC/CUMM (3.8-5.5); Red Cell Distribution Width 18.1 % (9.3-17.3); White Blood Count 13.46 T/CUMM (4-12)
[2022-09-07 06:10] LABS: Albumin 2.1 G/DL (3.4-5.0); Bilirubin,Total 0.5 MG/DL (0.20-1.00); Calcium 8.4 MG/DL (8.5-10.1); Potassium 3.8 MMOL/L (3.5-5.1); Total Protein 5.7 G/DL (6.4-8.2)
[2022-09-07] MEDS: INSULIN LISPRO 100 UNIT/ML SUBCUT SCH ×4 (08:48→20:20)
[2022-09-07] MEDS: APIXABAN 5 MG TABLET PO SCH ×2 (09:15→20:20)
[2022-09-07] MEDS: THYROID 60 MG TABLET PO SCH (09:15)
[2022-09-07] MEDS: PANTOPRAZOLE 40 MG TABLET PO SCH (09:15)
[2022-09-07] MEDS: oxyCODONE/ACETAMINOPHEN 5-325 MG TABLET PO PRN (12:15)
[2022-09-07] MEDS ORDERED: ONDANSETRON 4 MG/2 ML VIAL IV PRN (14:43)
[2022-09-07] MEDS: GABAPENTIN 600 MG TABLET PO SCH ×2 (15:08→20:20)
[2022-09-07] MEDS: oxyCODONE ER 20 MG TABLET PO SCH ×2 (15:08→20:20)
[2022-09-08] MEDS: oxyCODONE/ACETAMINOPHEN 5-325 MG TABLET PO PRN ×2 (00:15→13:21)
[2022-09-08 06:19] LABS: Basophils % 0.4 % (0.0-0.8); Eosinophils # 0.3 10*3/uL (0.0-0.87); Eosinophils % 2.6 % (0.00-10.9); Hematocrit 29.1 VOL% (35.7-47.0); Hemoglobin 9.3 GM/DL (12.0-16.0); Immature Granulocytes % 1.1 %; Immature Granulocytes Absolute 0.11 #; Lymphocytes # 1.3 10*3/uL (1.4-4.0); Lymphocytes % 12.2 % (21.3-54.2); Mean Corpuscular Volume 87.7 FL (87-102); Mean Platelet Volume 8.4 FL (9.6-12.0); Monocytes # 1.1 10*3/uL (0.11-0.8); Monocytes % 10.3 % (1.7-12.7); Neutrophils % 73.4 % (38.7-73.9); Platelet Count 464 T/CUMM (130-400); Red Blood Count 3.32 MC/CUMM (3.8-5.5); Red Cell Distribution Width 17.8 % (9.3-17.3); White Blood Count 10.21 T/CUMM (4-12)
[2022-09-08 06:40] LABS: Albumin 2.2 G/DL (3.4-5.0); Bilirubin,Total 0.4 MG/DL (0.20-1.00); Calcium 9.1 MG/DL (8.5-10.1); Osmolality,Calculated 266.2 MOS/KG (273-304); Potassium 3.9 MMOL/L (3.5-5.1); Total Protein 6.4 G/DL (6.4-8.2)
[2022-09-08] MEDS ORDERED: MAGNESIUM SULF RIDER 4 GM/100 ML PREMIX IV PRN (07:10)
[2022-09-08] MEDS ORDERED: MAGNESIUM SULF RIDER 2 GM/50 ML PREMIX IV PRN (07:10)
[2022-09-08] MEDS: INSULIN LISPRO 100 UNIT/ML SUBCUT SCH ×3 (07:18→16:48)
[2022-09-08] MEDS: PANTOPRAZOLE 40 MG TABLET PO SCH ×2 (07:31→08:04)
[2022-09-08] MEDS: THYROID 60 MG TABLET PO SCH ×2 (07:32→08:04)
[2022-09-08] MEDS: GABAPENTIN 600 MG TABLET PO SCH ×3 (07:32→16:48)
[2022-09-08] MEDS: APIXABAN 5 MG TABLET PO SCH ×2 (07:32→08:04)
[2022-09-08] MEDS: SODIUM CHLORIDE 0.9% 1,000 ML IV SCH ×3 (08:04→18:41)
[2022-09-08] MEDS: oxyCODONE ER 20 MG TABLET PO SCH (08:14)
[2022-09-08] MEDS: cefTRIAXone 1,000 MG in SODIUM CHLORIDE 0.9% 100 ML IV SCH (11:31)
[2022-09-08 16:42] VITALS: BP 130/43
== END 2022-09-08 17:15 | disposition home or self-care (01) | DRG 871 ==
LOC: EDUNIT# → EDBD → N.ED 23:18 → SUATTDRO 09-06 04:36 → N.EDINP 09-06 04:36 → N.2E 09-06 12:07
PROVIDERS: ADMIT Internal Medicine; ATTEND Internal Medicine